=== PATIENT | female | born 1960 | race Caucasian/White ===

== ENCOUNTER 2021-09-22 11:28 | Observation (INO) ==
[2021-09-22 12:43] LABS: Basophils # (auto) 0.03 K/uL (0-0.2); Basophils % (auto) 0.6 %; Eosinophils # (auto) 0.09 K/uL (0-0.5); Eosinophils % (auto) 1.8 %; Hemoglobin 12.9 g/dL (12.0-16.0); Lymphocytes # (auto) 1.66 K/uL (1.2-3.4); Lymphocytes % (auto) 32.8 %; Mean Corpuscular Hemoglobin 29.7 pg (25-34); Mean Corpuscular Hgb Conc 33.1 g/dL (32-36); Mean Corpuscular Volume 89.9 fL (80-100); Mean Platelet Volume 10.5 fL (7.4-10.4); Monocytes # (auto) 0.33 K/uL (0.11-0.59); Monocytes % (auto) 6.5 %; Neutrophils # (auto) 2.95 K/uL (1.4-6.5); Neutrophils % (auto) 58.3 %; Platelet Count 249 K/uL (130-400); RDW Coefficient of Variation 13.5 % (11.5-14.5); RDW Standard Deviation 44.8 fL (36.4-46.3); Red Blood Count 4.34 M/uL (4.2-5.4); White Blood Count 5.06 K/uL (4.8-10.8)
--- NOTE | 2021-09-22 12:56 | XRay Report ---
SINGLE VIEW CHEST CLINICAL HISTORY: Generalized weakness FINDINGS: An AP, portable, upright chest radiograph is obtained. No prior studies are available for c omparison at the time of dictation. The patient is status post midline sternotomy. Epicardial pacing leads are noted. The heart is top normal for projection noting atherosclerotic calcification of the t horacic aorta. The pulmonary vasculature is noncongested. The lungs and pleural spaces are clear. No pneumothorax is seen. The skeletal structures are osteopenic. The bony thorax is grossly intact. IMPRESSION: No active disease in the chest. ACT 112: Negative or not required by law. Electronically signed by: Maurice Diaz M.D. 09/22/2021 12:55 PM
[2021-09-22 13:01] LABS: Albumin Level 3.7 gm/dl (3.4-5.0); BUN Creatinine Ratio 14.2 (10-20); Calcium 9.1 mg/dl (8.5-10.1); Creatinine Clr Calc Pharmacy 54.1 ml/min; Est GFR (African American) 77.8 ml/min; Est GFR (Non-African American) 67.1 ml/min; Potassium 3.6 mmol/L (3.5-5.1)
[2021-09-22 13:12] LABS: Albumin Globulin Ratio 1.1 (0.9-2); Bilirubin,Total 0.4 mg/dl (0.2-1); Globulin 3.3 gm/dl (2.5-4.0); Thyroid Stimulating Hormone 2.19 uIu/ml (0.300-4.500)
--- NOTE | 2021-09-22 13:15 | Emergency Department Note ---
Impression & Plan Acute left-sided weakness, Stroke-like symptoms, Abnormal brain CT ED Provider Note NAME: KEREN VILLAGOMEZ AGE: 61 SEX: F : 1960 ARRIVES VIA: Ambulance INFORMANT: [Patient] ED PROVIDER(S): [Maurice Hyman MD] CHIEF COMPLAINT: Weakness HISTORY OF PRESENT ILLNESS: The patient is a 61-year-old female who states that 4 hours ago she was at her doctor's office. She suddenly had a feeling of numbness to the left side of her face, her left arm and left leg. Her left arm felt quite weak and was not moving like it should. She sat down. Within about 10 minutes, the symptoms resolved and she now feels back to baseline. The patient does have a mechanical mitral valve. She also has history of A. fib. She recently had to hold all anticoagulation for around 2 days to have a breast biopsy. The patient states that she is now back on Coumadin. She had been bridging with Lovenox until her Coumadin was felt therapeutic. The patient has no history of stroke. There has been no cough, congestion or shortness of breath. No chest pain. No urinary complaints. REVIEW OF SYSTEMS: See HPI for pertinent positives and negatives. A total of ten systems were reviewed and were otherwise negative. PMHx/PSHx: See Below SOCIAL HISTORY: See Below. PHYSICAL EXAM: GENERAL: Patient is in no acute distress. HEENT: No acute trauma, normocephalic atraumatic, mucous membranes moist, no nasal congestion, no scleral icterus. NECK: No stridor, no adenopathy, no meningismus, trachea is midline. LUNGS: Clear to auscultation bilaterally, no wheeze, no rhonchi, breath sounds equal. HEART: Without murmurs gallops or rubs, regular rate and rhythm. No click heard. ABDOMEN: Soft, nontender, bowel sounds positive, no hernias, no peritonitis. EXTREMITIES: No cyanosis or edema, full range of motion of all the joints without pain or difficulty, no signs for acute trauma. NEUROLOGIC: Oriented x 3, no acute motor or sensory deficits, no focal weakness. No speech slur or facial droop. No cerebellar dysfunction or extremity drift. SKIN: No rash, no jaundice, no diaphoresis. DIFFERENTIAL DIAGNOSIS: Infection, dehydration, metabolic abnormality, hypo/hyperglycemia, electrolyte disturbance, anemia, hypoxia, cardiac sources, intracerebral event, toxicologic issues, stroke, TIA, as well as other pathologies. EMERGENCY DEPARTMENT COURSE/PROCEDURES: ECG: Indication was possible stroke. The ECG shows a sinus bradycardia with a rate of 50. There is no ST elevation, no PVCs. There is some nonspecific ST change laterally. QTC is 428. Continuous Cardiac Monitoring: An order was placed for continuous cardiac monitoring. The monitor shows a rate of 59 with sinus bradycardia. Critical Care Note: I have personally spent 39 minutes of critical care time in the direct management of this patient. This includes bedside care, interpretation of diagnostic studies, and testing, discussion with consultants, patient, and family members, and other required patient management activities. This 39 minutes is in excess of all separately billable procedures. MEDICAL DECISION MAKING: There is no leukocytosis or concerning anemia. There is a normal platelet count. INR is therapeutic at 2.5. No significant electrolyte abnormality or kidney failure. No concerning liver enzyme elevation. Patient appeared to be in a euthyroid state. Urinalysis does not show infection. Covid testing returned negative. Chest film does not show pneumonia or CHF. Brain CT shows a potential subacute infarct. CT angio of the brain and neck were performed and there was no stenosis or clot seen. On exam, the patient's symptoms had resolved. She had no focal neurologic findings, no speech slur. The patient presents with left-sided weakness that lasted for about 10 minutes. She is not a TPA candidate as she is currently asymptomatic and anticoagulated and out of the TPA window. The patient does require a hospital stay for further neurologic work-up. It is certainly possible that she had a stroke. A mass is also a possibility. [facility]. I did speak with the case management team, the on-call hospitalist was consulted. Past Med/Surg History Medical History Breast cancer, right HLD (hyperlipidemia) Hypothyroidism Paroxysmal atrial fibrillation Surgical History (Updated 09/22/21 @ 17:19 by Sia Quarles PA-C) History of hysterectomy History of lumpectomy of right breast History of mitral valve replacement with mechanical valve S/P breast biopsy, right Family History (Updated 09/22/21 @ 17:20 by Sia Quarles PA-C) Other Cancer Dyslipidemia Social History Smoking Status: Current every day smoker Tobacco Type: Cigarettes Cigarettes Per Day: 1 cigarette/day; Hx Alcohol Use: Yes Alcohol Intake Frequency: 2-4 x/Month Hx Substance Use: No Feels Safe at Home: Yes Allergies Allergies Allergy/AdvReac Type Severity Reaction Status Date / Time No Known Allergies Allergy Unverified 09/22/21 13:20 Home Meds Home Medications Medication Instructions Recorded Confirmed dofetilide 250 mcg capsule 250 mcg PO BID 09/22/21 09/22/21 levothyroxine 50 mcg tablet 25 mcg PO UD 09/22/21 09/22/21 levothyroxine 50 mcg tablet 50 mcg PO UD 09/22/21 09/22/21 pravastatin 20 mg tablet 20 mg PO HS 09/22/21 09/22/21 warfarin 4 mg tablet 4 mg PO HS 09/22/21 09/22/21 Results & Data (ED) Vital Signs Vital Signs - 24 hr 09/22/21 11:32 09/22/21 12:30 09/22/21 13:00 Temperature 36.6 C Temperature Source Oral Pulse Rate 57 L 57 L 59 L Pulse Rate [Apical] Pulse Rate from SpO2 Sensor 53 L 56 L Pulse Rhythm [Apical] Respiratory Rate 18 17 13 Respiratory Effort / Characteristics Non-Labored Spontaneous Respiratory Depth Normal Respiratory Pattern Regular Blood Pressure 172/78 H 144/69 H 139/76 Blood Pressure [Left Arm] Blood Pressure Mean 109 94 97 Blood Pressure Mean [Left Arm] Blood Pressure Position Lying Blood Pressure Position [Left Arm] Pulse Oximetry 99 98 99 Oxygen Delivery Method Room Air Oxygen Flow Rate Sepsis Recent Fever Within 48 Hours No Sepsis New/Unexplained Change in Mental Status N/A Sepsis Action Taken by Nursing No Action Required 09/22/21 13:30 09/22/21 14:00 09/22/21 16:07 Temperature 36.6 C Temperature Source Oral Pulse Rate 56 L 62 53 L Pulse Rate [Apical] 56 L Pulse Rate from SpO2 Sensor 56 L Pulse Rhythm [Apical] Regular Respiratory Rate 12 16 14 Respiratory Effort / Characteristics Non-Labored Spontaneous Respiratory Depth Normal Respiratory Pattern Regular Blood Pressure 157/71 H 151/71 H Blood Pressure [Left Arm] 129/71 Blood Pressure Mean 99 97 Blood Pressure Mean [Left Arm] 90 Blood Pressure Position Blood Pressure Position [Left Arm] Sitting Pulse Oximetry 98 98 97 Oxygen Delivery Method Room Air Room Air Oxygen Flow Rate 97 Sepsis Recent Fever Within 48 Hours Sepsis New/Unexplained Change in Mental Status Sepsis Action Taken by Nursing 09/22/21 18:16 09/22/21 18:34 Temperature Temperature Source Pulse Rate 57 L Pulse Rate [Apical] 57 L Pulse Rate from SpO2 Sensor Pulse Rhythm [Apical] Regular Respiratory Rate 16 16 Respiratory Effort / Characteristics Non-Labored Respiratory Depth Normal Respiratory Pattern Blood Pressure 129/67 Blood Pressure [Left Arm] 129/67 Blood Pressure Mean Blood Pressure Mean [Left Arm] 87 Blood Pressure Position Blood Pressure Position [Left Arm] Pulse Oximetry 98 98 Oxygen Delivery Method Room Air Room Air Oxygen Flow Rate Sepsis Recent Fever Within 48 Hours Sepsis New/Unexplained Change in Mental Status Sepsis Action Taken by Usp Medications Current Medication List: was personally reviewed by me Laboratory Data Attestation: I reviewed the patient's lab results. Result diagrams: 09/22/21 12:00 09/22/21 12:00 Lab Results 09/22/21 09/22/21 09/22/21 Range/Units 12:00 12:00 12:00 WBC 5.06 (4.8-10.8) K/uL RBC 4.34 (4.2-5.4) M/uL Hgb 12.9 (12.0-16.0) g/dL Hct 39.0 (37-47) % MCV 89.9 (80-100) fL MCH 29.7 (25-34) pg MCHC 33.1 (32-36) g/dL RDW Std Deviation 44.8 (36.4-46.3) fL RDW Coeff of Tanya 13.5 (11.5-14.5) % Plt Count 249 (130-400) K/uL MPV 10.5 H (7.4-10.4) fL Immature Gran % (Auto) 0.0 % Neut % (Auto) 58.3 % Lymph % (Auto) 32.8 % [place] % (Auto) 6.5 % Eos % (Auto) 1.8 % Baso % (Auto) 0.6 % Neut # (Auto) 2.95 (1.4-6.5) K/uL Lymph # (Auto) 1.66 (1.2-3.4) K/uL [place] # (Auto) 0.33 (0.11-0.59) K/uL Eos # (Auto) 0.09 (0-0.5) K/uL Baso # (Auto) 0.03 (0-0.2) K/uL Immature Gran # (Auto) 0.00 (0.00-0.02) K/uL PT 24.0 H (9.0-12.0) Seconds INR 2.5 H (0.9-1.1) APTT 38.5 H (21.0-31.0) Seconds PTT Ratio 1.5 Sodium 140 (136-145) mmol/L Potassium 3.6 (3.5-5.1) mmol/L Chloride 107 (98-107) mmol/L Carbon Dioxide 26 (21-32) mmol/L Anion Gap 6.0 (3-11) BUN 13 (7-18) mg/dl Creatinine 0.91 (0.6-1.2) mg/dl Est Cr Clr Drug Dosing 54.1 ml/min Est GFR ( Amer) 77.8 ml/min Est GFR (Non-Af Amer) 67.1 ml/min BUN/Creatinine Ratio 14.2 (10-20) Glucose 84 (70-99) mg/dl Calcium 9.1 (8.5-10.1) mg/dl Magnesium (1.8-2.4) mg/dl Total Bilirubin 0.4 (0.2-1) mg/dl AST 57 H (15-37) U/L ALT 63 (12-78) U/L Alkaline Phosphatase 90 (45-117) U/L Total Protein 7.0 (6.4-8.2) gm/dl Albumin 3.7 (3.4-5.0) gm/dl Globulin 3.3 (2.5-4.0) gm/dl Albumin/Globulin Ratio 1.1 (0.9-2) TSH 2.190 (0.300-4.500) uIu/ml Urine Color Urine Appearance (Clear) Urine pH (4.5-7.5) Ur Specific [place] (1.000-1.030) Urine Protein (Negative) Urine Glucose (UA) (Negative) Urine Ketones (Negative) Urine Blood (Negative) Urine Nitrite (Negative) Urine Bilirubin (Negative) Urine Urobilinogen (Negative) Ur Leukocyte Esterase (Negative) COVID-19 Eval Order SARS-CoV-2 (PCR) (Negative) 09/22/21 09/22/21 09/22/21 Range/Units 12:00 16:11 16:11 WBC (4.8-10.8) K/uL RBC (4.2-5.4) M/uL Hgb (12.0-16.0) g/dL Hct (37-47) % MCV (80-100) fL MCH (25-34) pg MCHC (32-36) g/dL RDW Std Deviation (36.4-46.3) fL RDW Coeff of Tanya (11.5-14.5) % Plt Count (130-400) K/uL MPV (7.4-10.4) fL Immature Gran % (Auto) % Neut % (Auto) % Lymph % (Auto) % [place] % (Auto) % Eos % (Auto) % Baso % (Auto) % Neut # (Auto) (1.4-6.5) K/uL Lymph # (Auto) (1.2-3.4) K/uL [place] # (Auto) (0.11-0.59) K/uL Eos # (Auto) (0-0.5) K/uL Baso # (Auto) (0-0.2) K/uL Immature Gran # (Auto) (0.00-0.02) K/uL PT (9.0-12.0) Seconds INR (0.9-1.1) APTT (21.0-31.0) Seconds PTT Ratio Sodium (136-145) mmol/L Potassium (3.5-5.1) mmol/L Chloride (98-107) mmol/L Carbon Dioxide (21-32) mmol/L Anion Gap (3-11) BUN (7-18) mg/dl Creatinine (0.6-1.2) mg/dl Est Cr Clr Drug Dosing ml/min Est GFR ( Amer) ml/min Est GFR (Non-Af Amer) ml/min BUN/Creatinine Ratio (10-20) Glucose (70-99) mg/dl Calcium (8.5-10.1) mg/dl Magnesium 2.3 (1.8-2.4) mg/dl Total Bilirubin (0.2-1) mg/dl AST (15-37) U/L ALT (12-78) U/L Alkaline Phosphatase (45-117) U/L Total Protein (6.4-8.2) gm/dl Albumin (3.4-5.0) gm/dl Globulin (2.5-4.0) gm/dl Albumin/Globulin Ratio (0.9-2) TSH (0.300-4.500) uIu/ml Urine Color Urine Appearance (Clear) Urine pH (4.5-7.5) Ur Specific [place] (1.000-1.030) Urine Protein (Negative) Urine Glucose (UA) (Negative) Urine Ketones (Negative) Urine Blood (Negative) Urine Nitrite (Negative) Urine Bilirubin (Negative) Urine Urobilinogen (Negative) Ur Leukocyte Esterase (Negative) COVID-19 Eval Order Covid19 at [facility] SARS-CoV-2 (PCR) NEGATIVE (Negative) 09/22/21 Range/Units 17:50 WBC (4.8-10.8) K/uL RBC (4.2-5.4) M/uL Hgb (12.0-16.0) g/dL Hct (37-47) % MCV (80-100) fL MCH (25-34) pg MCHC (32-36) g/dL RDW Std Deviation (36.4-46.3) fL RDW Coeff of Tanya (11.5-14.5) % Plt Count (130-400) K/uL MPV (7.4-10.4) fL Immature Gran % (Auto) % Neut % (Auto) % Lymph % (Auto) % [place] % (Auto) % Eos % (Auto) % Baso % (Auto) % Neut # (Auto) (1.4-6.5) K/uL Lymph # (Auto) (1.2-3.4) K/uL [place] # (Auto) (0.11-0.59) K/uL Eos # (Auto) (0-0.5) K/uL Baso # (Auto) (0-0.2) K/uL Immature Gran # (Auto) (0.00-0.02) K/uL PT (9.0-12.0) Seconds INR (0.9-1.1) APTT (21.0-31.0) Seconds PTT Ratio Sodium (136-145) mmol/L Potassium (3.5-5.1) mmol/L Chloride (98-107) mmol/L Carbon Dioxide (21-32) mmol/L Anion Gap (3-11) BUN (7-18) mg/dl Creatinine (0.6-1.2) mg/dl Est Cr Clr Drug Dosing ml/min Est GFR ( Amer) ml/min Est GFR (Non-Af Amer) ml/min BUN/Creatinine Ratio (10-20) Glucose (70-99) mg/dl Calcium (8.5-10.1) mg/dl Magnesium (1.8-2.4) mg/dl Total Bilirubin (0.2-1) mg/dl AST (15-37) U/L ALT (12-78) U/L Alkaline Phosphatase (45-117) U/L Total Protein (6.4-8.2) gm/dl Albumin (3.4-5.0) gm/dl Globulin (2.5-4.0) gm/dl Albumin/Globulin Ratio (0.9-2) TSH (0.300-4.500) uIu/ml Urine Color Yellow Urine Appearance Clear (Clear) Urine pH 7.5 (4.5-7.5) Ur Specific [place] > 1.045 H (1.000-1.030) Urine Protein Negative (Negative) Urine Glucose (UA) Negative (Negative) Urine Ketones Negative (Negative) Urine Blood Negative (Negative) Urine Nitrite Negative (Negative) Urine Bilirubin Negative (Negative) Urine Urobilinogen Negative (Negative) Ur Leukocyte Esterase Negative (Negative) COVID-19 Eval Order SARS-CoV-2 (PCR) (Negative) Administered Medications Discontinued Medications Ioversol (Optiray 320 125ml) 120 ml IV ONCE ONE Stop: 09/22/21 13:49 Last Admin: 09/22/21 13:49 Dose: 120 ml Documented by: [id number] Imaging Data Radiologist's Impression: Chest X-Ray 09/22/21 12:22 SINGLE VIEW CHEST CLINICAL HISTORY: Generalized weakness FINDINGS: An AP, portable, upright chest radiograph is obtained. No prior studies are available for comparison at the time of dictation. The patient is status post midline sternotomy. Epicardial pacing leads are noted. The heart is top normal for projection noting atherosclerotic calcification of the thoracic aorta. The pulmonary vasculature is noncongested. The lungs and pleural spaces are clear. No pneumothorax is seen. The skeletal structures are osteopenic. The bony thorax is grossly intact. IMPRESSION: No active disease in the chest. ACT 112: Negative or not required by law. Electronically signed by: Maurice Diaz M.D. 09/22/2021 12:[address] 09/22/21 13:04 CT head/brain wo con, CT angio neck with con, CT angio head w con CLINICAL HISTORY: 61 years-old Female with left side weak. Acute left-sided weakness TECHNIQUE: Multiple axial CT images of the head were obtained without contrast. CTA head and neck was obtained following the intravenous administration of 120 mL Optiray 320. 3-D coronal and sagittal MIPS were obtained from the axial data set and were submitted for review. All measurements were obtained according to NASCET criteria. A dose lowering technique was utilized adhering to the p rinciples of ALA. CT DOSE: 989.75 mGy.cm COMPARISON: None FINDINGS: CT HEAD: No acute intracranial hemorrhage, midline shift, intracranial mass, hydrocephalus, territorial ischemia or abnormal extra-axial collection. Ill- defined area of decreased attenuation involves the dentate nuclei of the left cerebellar hemisphere on image 8 series 2. There is mild associated mass effect upon the adjacent left quadrigeminal plate cistern. The calvarium is intact. The paranasal sinuses, mastoid air cells, and middle ear cavities are clear. CTA HEAD AND NECK: Prior median sternotomy. Atherosclerosis of the thoracic aortic arch and proximal great vessels without high-grade stenosis. Patency of the innominate and imaged subclavian arteries. The common carotid arteries are patent. Mild atherosclerosis with mild luminal irregularity of the carotid bulbs and proximal cervical segments of the internal carotid arteries. Additional atherosclerosis of the cavernous and supraclinoid segments. The middle cerebral arteries are patent. 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 No rupture. Mild tortuosity with luminal irregularity of the P2 segments of the vertebral arteries at the level of C1-C2 on image 260 series 6 for example. The basilar and posterior cerebral arteries appear patent. There is mild multifocal luminal narrowing of the left posterior cerebral artery. The cerebral venous sinuses are patent. There is no abnormal intracranial enhancement. Emphysema. No pneumothorax. Unremarkable soft tissues. Mild polypoid mucosal thickening of the left maxillary sinus. No acute fracture. IMPRESSION: 1. Ill-defined area of decreased attenuation involving the dentate nucleus of the mid left cerebellar hemisphere with suggested mild mass effect upon the adjacent quadrigeminal plate cistern. This is concerning for an acute versus subacute infarct with underlying intra-axial lesion considered less likely. This could be correlated with a follow-up MRI of the brain. 2. 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 Atherosclerotic vascular disease without high-grade stenosis, dissection or arterial occlusion identified. ACT 112: Negative or not required by law. The above report was generated using voice recognition software. It may contain grammatical, syntax or spelling errors. Electronically signed by: Hugh Peterson M.D. 09/22/2021 2:10 PM Head CTA 09/22/21 13:04 CT head/brain wo con, CT angio neck with con, CT angio head w con CLINICAL HISTORY: 61 years-old Female with left side weak. Acute left-sided weakness TECHNIQUE: Multiple axial CT images of the head were obtained without contrast. CTA head and neck was obtained following the intravenous administration of 120 mL Optiray 320. 3-D coronal and sagittal MIPS were obtained from the axial data set and were submitted for review. All measurements were obtained according to NASCET criteria. A dose lowering technique was utilized adhering to the principles of ALARA. CT DOSE: 989.75 mGy.cm COMPARISON: None FINDINGS: CT HEAD: No acute intracranial hemorrhage, midline shift, intracranial mass, hydrocephalus, territorial ischemia or abnormal extra-axial collection. Ill- defined area of decreased attenuation involves the dentate nuclei of the left cerebellar hemisphere on image 8 series 2. There is mild associated mass effect upon the adjacent left quadrigeminal plate cistern. The calvarium is intact. The paranasal sinuses, mastoid air cells, and middle ear cavities are clear. CTA HEAD AND NECK: Prior median sternotomy. Atherosclerosis of the thoracic aortic arch and proximal great vessels without high-grade stenosis. Patency of the innominate and imaged subclavian arteries. The common carotid arteries are patent. Mild atherosclerosis with mild luminal irregularity of the carotid bulbs and proximal cervical segments of the internal carotid arteries. Additional atherosclerosis of the cavernous and supraclinoid segments. The middle cerebral arteries are patent. 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 No rupture. Mild tortuosity with luminal irregularity of the P2 segments of the vertebral arteries at the level of C1-C2 on image 260 series 6 for example. The basilar and posterior cerebral arteries appear patent. There is mild multifocal luminal narrowing of the left posterior cerebral artery. The cerebral venous sinuses are patent. There is no abnormal intracranial enhancement. Emphysema. No pneumothorax. Unremarkable soft tissues. Mild polypoid mucosal thickening of the left maxillary sinus. No acute fracture. IMPRESSION: 1. Ill-defined area of decreased attenuation involving the dentate nucleus of the mid left cerebellar hemisphere with suggested mild mass effect upon the adjacent quadrigeminal plate cistern. This is concerning for an acute versus subacute infarct with underlying intra-axial lesion considered less likely. This could be correlated with a follow-up MRI of the brain. 2. 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 Atherosclerotic vascular disease without high-grade stenosis, dissection or arterial occlusion identified. ACT 112: Negative or not required by law. The above report was generated using voice recognition software. It may contain grammatical, syntax or spelling errors. Electronically signed by: Hugh Peterson M.D. 09/22/2021 2:10 PM Neck CTA 09/22/21 13:04 CT head/brain wo con, CT angio neck with con, CT angio head w con CLINICAL HISTORY: 61 years-old Female with left side weak. Acute left-sided we akness TECHNIQUE: Multiple axial CT images of the head were obtained without contrast. CTA head and neck was obtained following the intravenous administration of 120 mL Optiray 320. 3-D coronal and sagittal MIPS were obtained from the axial data set and were submitted for review. All measurements were obtained according to NASCET criteria. A dose lowering technique was utilized adhering to the principles of ALARA. CT DOSE: 989.75 mGy.cm COMPARISON: None FINDINGS: CT HEAD: No acute intracranial hemorrhage, midline shift, intracranial mass, hydroceph alus, territorial ischemia or abnormal extra-axial collection. Ill-defined area of decreased attenuation involves the dentate nuclei of the left cerebellar hemisphere on image 8 series 2. There is mild associated mass effect upon the adjacent left quadrigeminal plate cistern. The calvarium is intact. The paranasal sinuses, mastoid air cells, and middle ear cavities are clear. CTA HEAD AND NECK: Prior median sternotomy. Atherosclerosis of the thoracic aortic arch and proximal great vessels without high-grade stenosis. Patency of the innominate and imaged subclavian arteries. The common carotid arteries are patent. Mild atherosclerosis with mild luminal irregularity of the carotid bulbs and proximal cervical segments of the internal carotid arteries. Additional atherosclerosis of the cavernous and supraclinoid segments. The middle cerebral arteries are patent. 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 No rupture. Mild tortuosity with luminal irregularity of the P2 segments of the vertebral arteries at the level of C1-C2 on image 260 series 6 for example. The basilar and posterior cerebral arteries appear patent. There is mild multifocal luminal narrowing of the left posterior cerebral artery. The cerebral venous sinuses are patent. There is no abnormal intracranial enhancement. Emphysema. No pneumothorax. Unremarkable soft tissues. Mild polypoid mucosal thickening of the left maxillary sinus. No acute fracture. IMPRESSION: 1. Ill-defined area of decreased attenuation involving the dentate nucleus of the mid left cerebellar hemisphere with suggested mild mass effect upon the adjacent quadrigeminal plate cistern. This is concerning for an acute versus subacute infarct with underlying intra-axial lesion considered less likely. This could be correlated with a follow-up MRI of the brain. 2. 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 Atherosclerotic vascular disease without high-grade stenosis, dissection or arterial occlusion identified. ACT 112: Negative or not required by law. The above report was generated using voice recognition software. It may contain grammatical, syntax or spelling errors. Electronically signed by: Hugh Peterson M.D. 09/22/2021 2:10 PM Discharge Plan Visit Data Chief Complaint: Weakness Stated Complaint: WEAKNESS ED Provider: Maurice Hyman Discharge Problem: Acute left-sided weakness, Stroke-like symptoms, Abnormal brain CT Patient Disposition: Admitted As Inpatient Condition: Fair Discharge Instructions Interventions: ED Discharge Assessment Last Done: 09/22/21 18:34 Forms Stand Alone Forms: My [employer] Prescriptions Prescriptions: No Action dofetilide 250 mcg capsule 250 mcg PO BID RF: 0 warfarin 4 mg tablet 4 mg PO HS RF: 0 levothyroxine 50 mcg tablet 50 mcg PO UD RF: 0 pravastatin 20 mg tablet 20 mg PO HS RF: 0 levothyroxine 50 mcg tablet 25 mcg PO UD RF: 0 Referrals Referrals: Jose Garibay MD [Primary Care Provider] -
[2021-09-22 13:21] LABS: INR 2.5 (0.9-1.1); Partial Thromboplastin Ratio 1.5; Partial Thromboplastin Time 38.5 Seconds (21.0-31.0)
[2021-09-22] MEDS ORDERED: OPTIRAY 320 125ml IV ONE (13:48)
--- NOTE | 2021-09-22 14:11 | CT Scan Report ---
CT head/brain wo con, CT angio neck with con, CT angio head w con CLINICAL HISTORY: 61 years-old Female with left side weak. Acute left-sided weakness TECHNIQUE: Multiple axial CT images of the head were obtained without contrast. CTA head and neck was obtained following the intravenous administration of 120 mL Optiray 320. 3-D coronal and sagittal MS PS were obtained from the axial data set and were submitted for review. All measurements were obtaine d according to NASCET criteria. A dose lowering technique was utilized adhering to the principles of ALARA. CT DOSE: 989.75 mGy.cm COMPARISON: None FINDINGS: CT HEAD: No acute intracranial hemorrhage, midline shift, intracranial mass, hydrocephalus, territorial ischem ia or abnormal extra-axial collection. Ill-defined area of decreased attenuation involves the dentate nuclei of the left cerebellar hemisphere on image 8 series 2. There is mild associated mass effect u taye the adjacent left quadrigeminal plate cistern. The calvarium is intact. The paranasal sinuses, mastoid air cells, and middle ear cavities are clear . CTA HEAD AND NECK: Prior median sternotomy. Atherosclerosis of the thoracic aortic arch and proximal great vessels witho ut high-grade stenosis. Patency of the innominate and imaged subclavian arteries. The common carotid arteries are patent. Mild atherosclerosis with mild luminal irregularity of the carotid bulbs and pro ximal cervical segments of the internal carotid arteries. Additional atherosclerosis of the cavernous and supraclinoid segments. The middle cerebral arteries are patent. 3 mm saccular aneurysm of the an terior communicating artery. No rupture. Mild tortuosity with luminal irregularity of the P2 segments of the vertebral arteries at the level of C1-C2 on image 260 series 6 for example. The basilar and p osterior cerebral arteries appear patent. There is mild multifocal luminal narrowing of the left post erior cerebral artery. The cerebral venous sinuses are patent. There is no abnormal intracranial enha ncement. Emphysema. No pneumothorax. Unremarkable soft tissues. Mild polypoid mucosal thickening of the left m axillary sinus. No acute fracture. IMPRESSION: 1. Ill-defined area of decreased attenuation involving the dentate nucleus of the mid left cerebellar hemisphere with suggested mild mass effect upon the adjacent quadrigeminal plate cistern. This is co ncerning for an acute versus subacute infarct with underlying intra-axial lesion considered less like ly. This could be correlated with a follow-up MRI of the brain. 2. 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 Atherosclerotic vascular disease without high-grade stenosis, dissection or arterial occlusion marcy ntified. ACT 112: Negative or not required by law. The above report was generated using voice recognition software. It may contain grammatical, syntax o r spelling errors. Electronically signed by: Hugh Peterson M.D. 09/22/2021 2:10 PM
--- NOTE | 2021-09-22 15:40 | History & Physical Report ---
Date of Service September 22, 2021 Assessment & Plan (1) Stroke-like symptoms: Plan: Patient is 61 y/o F with PMH mechanical mitral valve in 1993, on warfarin, paroxysmal atrial fibrillation, right breast CA s/p lumpectomy, hypothyroidism presented to ER with complaint of left face, arm and leg paresthesias and left arm weakness lasting 10 minutes today. Was off Coumadin 2 days last week then had Lovenox bridge. Today in ER vitals stable. Patient with resolution of symptoms. CTA head and neck: 1. Ill-defined area of decreased attenuation involving the dentate nucleus of the mid left cerebellar hemisphere with suggested mild mass effect upon the adjacent quadrigeminal plate cistern. This is concerning for an acute versus subacute infarct with underlying intra-axial lesion considered less likely. This could be correlated with a follow-up MRI of the brain. 2. 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 Atherosclerotic vascular disease without high-grade stenosis, dissection or arterial occlusion identified. Tele to monitor for arrhythmias MRI brain Echo with bubble study PT/OT consult Continue statin Will hold on Plavix, aspirin as pt is currently on [facility] Neurology consult (2) History of mitral valve replacement with mechanical valve: Plan: S/p mechanical valve in 1993 On Coumadin, goal 2.5-3.5 INR: 2.5 INR in a.m. (3) Paroxysmal atrial fibrillation: Plan: Current sinus rhythm Continue Tikosyn, Coumadin INR in a.m. (4) HLD (hyperlipidemia): Plan: Continue pravastatin (5) Hypothyroidism: Plan: Continue levothyroxine (6) Breast cancer, right: Plan: S/p lumpectomy Continue outpatient follow-up DVT Prophylaxis On Coumadin, INR: 2.5 Full Code as per discussion with pt Follows with Dr Garibay for routine care Pt was seen and care coordinated with Dr Hughes. See addendum History of Present Illness Chief Complaint: Weakness Primary Care Provider: Jose Garibay MD Patient is 61 y/o F with PMH mechanical mitral valve in 1993, on warfarin, paroxysmal atrial fibrillation, right breast CA s/p lumpectomy, hypothyroidism presented to ER with complaint of left-sided paresthesias. Patient states this morning around 9 AM she had sudden onset of numbness and tingling to left face, left arm and left leg. She also noted left arm weakness. She felt a little dizzy when trying to stand. Patient states symptoms lasted approximately 10 minutes and then resolved. Denies headache, vision changes, speech changes. Patient was off Coumadin last week 09/13/2021 and 09/14/2021 and started Lovenox bridge on 09/15/2021 in preparation for breast biopsy on 09/18/2021. She resumed Coumadin on 09/18/2021 and stopped Lovenox 09/21/2021. Denies fever/chills, diaphoresis, N/V/D/C, syncope, falls, neck pain, CP, SOB, orthopnea, palpitations, cough, sore throat, choking, otalgia, rhinorrhea, abdominal pain, extremity edema, rashes, urinary symptoms. Today in ER patient with resolution of symptoms. CTA head: Ill-defined area of decreased attenuation involving the Hakeem nuclear's of the mid left cerebellar hemisphere with suggested mild mass-effect upon the adjacent quadrigeminal plate cistern. This is concerning for acute versus subacute infarct with underlying intra-axial lesion considered less likely. Patient being admitted for further evaluation and work-up Allergies Allergy/AdvReac Type Severity Reaction Status Date / Time No Known Allergies Allergy Unverified 09/22/21 13:20 Home Medications Medication Instructions Recorded Confirmed Type dofetilide 250 mcg capsule 250 mcg PO BID 09/22/21 09/22/21 History levothyroxine 50 mcg tablet 25 mcg PO UD 09/22/21 09/22/21 History levothyroxine 50 mcg tablet 50 mcg PO UD 09/22/21 09/22/21 History pravastatin 20 mg tablet 20 mg PO HS 09/22/21 09/22/21 History warfarin 4 mg tablet 4 mg PO HS 09/22/21 09/22/21 History Past Med/Surg History Medical History Breast cancer, right HLD (hyperlipidemia) Hypothyroidism Paroxysmal atrial fibrillation Surgical History (Updated 09/22/21 @ 17:19 by Sia Quarles PA-C) History of hysterectomy History of lumpectomy of right breast History of mitral valve replacement with mechanical valve S/P breast biopsy, right Family History (Updated 09/22/21 @ 17:20 by Sia Quarles PA-C) Other Cancer Dyslipidemia Social History Smoking Status: Never smoker Tobacco Type: Cigarettes Cigarettes Per Day: 1 cigarette/day; Hx Alcohol Use: No Hx Substance Use: No Preferred Language: Bhutanese Communication Ability: Effective Dry House Tender Required: No Beliefs That Will Affect Care: None Current Living Situation: Family Other Information That Helps Us Care for You: No Feels Safe at Home: No Is there a partner from a previous relationship who is making you feel unsafe now?: No Any Concerns about Your Family Situation: No Would You Like to Speak to Someone About Your Situation: No Safety Concerns: Feels Safe At This Time Review of Systems Review of Systems: All systems reviewed & are unremarkable except as noted in HPI & below Physical Exam Physical Exam: General: no distress, WDWN Head: normocephalic, atraumatic Eyes: PERRL, EOM's intact, conjunctiva non-injected, anicteric ENT: normal inspection external ears, nose, mucous membranes moist Neck: supple, trachea midline, non-tender Lungs: clear, no respiratory distress, no wheezing/rhonchi/rales CV: RRR, no murmur, no JVD, no pretibial edema Abd: normal BS, soft, non-tender Ext: no cyanosis, no calf tenderness Neuro: A&O x 3, normal affect,Visual graham intact. PERRL,EOMs intact. No nystagmus,Facial sensation is intact and symmetric,The face is strong and symmetric, Hearing grossly intact, Soft palate elevates symmetrically, no dysarthria, Shoulder shrug intact, Tongue is midline, normal movement, no fasciculations. Strength 5/5 throughout Skin: warm, dry Results & Data Results & Data ([facility]) Vital Signs (Past 12 Hours) Vital Signs Temp Pulse Resp BP Pulse Ox 09/22/21 14:00 62 16 151/71 H 98 09/22/21 13:30 56 L 12 157/71 H 98 09/22/21 13:00 59 L 13 139/76 99 09/22/21 12:30 57 L 17 144/69 H 98 09/22/21 11:32 36.6 C 57 L 18 172/78 H 99 Laboratory Results Short CBC 09/22/21 Range/Units 12:00 WBC 5.06 (4.8-10.8) K/uL Hgb 12.9 (12.0-16.0) g/dL Hct 39.0 (37-47) % Plt Count 249 (130-400) K/uL BMP 09/22/21 12:00 Sodium 140 Potassium 3.6 Chloride 107 Carbon Dioxide 26 BUN 13 Creatinine 0.91 Glucose 84 Calcium 9.1 Liver Function 09/22/21 Range/Units 12:00 Total Bilirubin 0.4 (0.2-1) mg/dl AST 57 H (15-37) U/L ALT 63 (12-78) U/L Alkaline Phosphatase 90 (45-117) U/L Albumin 3.7 (3.4-5.0) gm/dl Diagnostic Findings Chest X-Ray 09/22/21 12:22 SINGLE VIEW CHEST CLINICAL HISTORY: Generalized weakness FINDINGS: An AP, portable, upright chest radiograph is obtained. No prior studies are available for comparison at the time of dictation. The patient is status post midline sternotomy. Epicardial pacing leads are noted. The heart is top normal for projection noting atherosclerotic calcification of the thoracic aorta. The pulmonary vasculature is noncongested. The lungs and pleural spaces are clear. No pneumothorax is seen. The skeletal structures are osteopenic. The bony thorax is grossly intact. IMPRESSION: No active disease in the chest. ACT 112: Negative or not required by law. Electronically signed by: Maurice Diaz M.D. 09/22/2021 12:[address] 09/22/21 13:04 CT head/brain wo con, CT angio neck with con, CT angio head w con CLINICAL HISTORY: 61 years-old Female with left side weak. Acute left-sided weakness TECHNIQUE: Multiple axial CT images of the head were obtained without contrast. CTA head and neck was obtained following the intravenous administration of 120 mL Optiray 320. 3-D coronal and sagittal MIPS were obtained from the axial data set and were submitted for review. All measurements were obtained according to NASCET criteria. A dose lowering technique was utilized adhering to the principles of ALARA. CT DOSE: 989.75 mGy.cm COMPARISON: None FINDINGS: CT HEAD: No acute intracranial hemorrhage, midline shift, intracranial mass, hydrocephalus, territorial ischemia or abnormal extra-axial collection. Ill- defined area of decreased attenuation involves the dentate nuclei of the left ce rebellar hemisphere on image 8 series 2. There is mild associated mass effect upon the adjacent left quadrigeminal plate cistern. The calvarium is intact. The paranasal sinuses, mastoid air cells, and middle ear cavities are clear. CTA HEAD AND NECK: Prior median sternotomy. Atherosclerosis of the thoracic aortic arch and proximal great vessels without high-grade stenosis. Patency of the innominate and imaged subclavian arteries. The common carotid arteries are patent. Mild atherosclerosis with mild luminal irregularity of the carotid bulbs and proximal cervical segments of the internal carotid arteries. Additional atherosclerosis of the cavernous and supraclinoid segments. The middle cerebral arteries are patent. 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 No rupture. Mild tortuosity with luminal irregularity of the P2 segments of the vertebral arteries at the level of C1-C2 on image 260 series 6 for example. The basilar and posterior cerebral arteries appear patent. There is mild multifocal luminal narrowing of the left posterior cerebral artery. The cerebral venous sinuses are patent. There is no abnormal intracranial enhancement. Emphysema. No pneumothorax. Unremarkable soft tissues. Mild polypoid mucosal thickening of the left maxillary sinus. No acute fracture. IMPRESSION: 1. Ill-defined area of decreased attenuation involving the dentate nucleus of the mid left cerebellar hemisphere with suggested mild mass effect upon the adjacent quadrigeminal plate cistern. This is concerning for an acute versus subacute infarct with underlying intra-axial lesion considered less likely. This could be correlated with a follow-up MRI of the brain. 2. 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 Atherosclerotic vascular disease without high-grade stenosis, dissection or arterial occlusion identified. ACT 112: Negative or not required by law. The above report was generated using voice recognition software. It may contain grammatical, syntax or spelling errors. Electronically signed by: Hugh Peterson M.D. 09/22/2021 2:10 PM Head CTA 09/22/21 13:04 CT head/brain wo con, CT angio neck with con, CT angio head w con CLINICAL HISTORY: 61 years-old Female with left side weak. Acute left-sided weakness TECHNIQUE: Multiple axial CT images of the head were obtained without contrast. CTA head and neck was obtained following the intravenous administration of 120 mL Optiray 320. 3-D coronal and sagittal MIPS were obtained from the axial data set and were submitted for review. All measurements were obtained according to NASCET criteria. A dose lowering technique was utilized adhering to the principles of ALARA. CT DOSE: 989.75 mGy.cm COMPARISON: None FINDINGS: CT HEAD: No acute intracranial hemorrhage, midline shift, intracranial mass, hydrocephalus, territorial ischemia or abnormal extra-axial collection. Ill- defined area of decreased attenuation involves the dentate nuclei of the left cerebellar hemisphere on image 8 series 2. There is mild associated mass effect upon the adjacent left quadrigeminal plate cistern. The calvarium is intact. The paranasal sinuses, mastoid air cells, and middle ear cavities are clear. CTA HEAD AND NECK: Prior median sternotomy. Atherosclerosis of the thoracic aortic arch and proximal great vessels without high-grade stenosis. Patency of the innominate and imaged subclavian arteries. The common carotid arteries are patent. Mild atherosclerosis with mild luminal irregularity of the carotid bulbs and proximal cervical segments of the internal carotid arteries. Additional atherosclerosis of the cavernous and supraclinoid segments. The middle cerebral arteries are patent. 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 No rupture. Mild tortuosity with luminal irregularity of the P2 segments of the vertebral arteries at the level of C1-C2 on image 260 series 6 for example. The basilar and posterior cerebral arteries appear patent. There is mild multifocal luminal narrowing of the left posterior cerebral artery. The cerebral venous sinuses are patent. There is no abnormal intracranial enhancement. Emphysema. No pneumothorax. Unremarkable soft tissues. Mild polypoid mucosal thickening of the left maxillary sinus. No acute fracture. IMPRESSION: 1. Ill-defined area of decreased attenuation involving the dentate nucleus of the mid left cerebellar hemisphere with suggested mild mass effect upon the adjacent quadrigeminal plate cistern. This is concerning for an acute versus subacute infarct with underlying intra-axial lesion considered less likely. This could be correlated with a follow-up MRI of the brain. 2. 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 Atherosclerotic vascular disease without high-grade stenosis, dissection or arterial occlusion identified. ACT 112: Negative or not required by law. The above report was generated using voice recognition software. It may contain grammatical, syntax or spelling errors. Electronically signed by: Hugh Peterson M.D. 09/22/2021 2:10 PM Neck CTA 09/22/21 13:04 CT head/brain wo con, CT angio neck with con, CT angio head w con CLINICAL HISTORY: 61 years-old Female with left side weak. Acute left-sided weakness TECHNIQUE: Multiple axial CT images of the head were obtained without contrast. CTA head and neck was obtained following the intravenous administration of 120 mL Optiray 320. 3-D coronal and sagittal MIPS were obtained from the axial data set and were submitted for review. All measurements were obtained according to NASCET criteria. A dose lowering technique was utilized adhering to the principles of ALARA. CT DOSE: 989.75 mGy.cm COMPARISON: None FINDINGS: CT HEAD: No acute intracranial hemorrhage, midline shift, intracranial mass, hydrocephalus, territorial ischemia or abnormal extra-axial collection. Ill- defined area of decreased attenuation involves the dentate nuclei of the left cerebellar hemisphere on image 8 series 2. There is mild associated mass effect upon the adjacent left quadrigeminal plate cistern. The calvarium is intact. The paranasal sinuses, mastoid air cells, and middle ear cavities are clear. CTA HEAD AND NECK: Prior median sternotomy. Atherosclerosis of the thoracic aortic arch and pro ximal great vessels without high-grade stenosis. Patency of the innominate and imaged subclavian arteries. The common carotid arteries are patent. Mild atherosclerosis with mild luminal irregularity of the carotid bulbs and proximal cervical segments of the internal carotid arteries. Additional atherosclerosis of the cavernous and supraclinoid segments. The middle cerebral arteries are patent. 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 No rupture. Mild tortuosity with luminal irregularity of the P2 segments of the vertebral arteries at the level of C1-C2 on image 260 series 6 for example. The basilar and posterior cerebral arteries appear patent. There is mild multifocal luminal narrowing of the left posterior cerebral artery. The cerebral venous sinuses are patent. There is no abnormal intracranial enhancement. Emphysema. No pneumothorax. Unremarkable soft tissues. Mild polypoid mucosal thickening of the left maxillary sinus. No acute fracture. IMPRESSION: 1. Ill-defined area of decreased attenuation involving the dentate nucleus of the mid left cerebellar hemisphere with suggested mild mass effect upon the adjacent quadrigeminal plate cistern. This is concerning for an acute versus subacute infarct with underlying intra-axial lesion considered less likely. This could be correlated with a follow-up MRI of the brain. 2. 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 Atherosclerotic vascular disease without high-grade stenosis, dissection or arterial occlusion identified. ACT 112: Negative or not required by law. The above report was generated using voice recognition software. It may contain grammatical, syntax or spelling errors. Electronically signed by: Hugh Peterson M.D. 09/22/2021 2:10 PM Supervising Physician Co-Signing Physician Notes Attending addendum The patient was seen and examined in emergency room She has multiple medical problems as mentioned in H&P and has been on Coumadin She underwent recent breast surgery and her anticoagulation was managed appropriately Complained to have sudden onset of numbness and tingling involving the left side of the face body and limbs lasted for 10 minutes without any other neurological symptoms Symptoms completely resolved in the emergency room CTA showed possible lesion/infarct involving the dentate nucleus of the mid left cerebellum On examination No apparent distress at rest Hemodynamically stable Chestclear Heart S1-S2, regular CNSalert, awake and oriented x3 No focal sensory and motor deficit appreciated Her admission labs, EKG and imaging studies reviewed Strokelike symptoms with possible lesion in the dentate nucleus of the mid left cerebellum Symptoms completely resolved and the INR is therapeutic Neurology consulted Agree with assessment and plan as outlined above by LATANYA Rivers Dr
[2021-09-22 18:00] LABS: Appearance Urine Clear (Clear); Bilirubin Urine Negative (Negative); Blood Urine Negative (Negative); Color Urine Yellow; Glucose Urine UA Negative (Negative); Ketones Urine Negative (Negative); Leukocyte Esterase Urine Negative (Negative); Nitrite Urine Negative (Negative); Protein Urine Negative (Negative); Specific Gravity Urine > 1.045 (1.000-1.030); Urobilinogen Urine Negative (Negative); pH Urine 7.5 (4.5-7.5)
--- NOTE | 2021-09-22 18:14 | Electrocardiogram Report ---
Test Reason : Blood Pressure : / mmHG Vent. Rate : 050 BPM Atrial Rate : 050 BPM P-R Int : 180 ms QRS Dur : 082 ms QT Int : 470 ms P-R-T Axes : 090 005 033 degrees QTc Int : 428 ms Poor data quality, interpretation may be adversely affected Sinus bradycardia with sinus arrhythmia Nonspecific ST and T wave abnormality Abnormal ECG When compared with ECG of 21-OCT-2018 07:52, No significant change was found Confirmed by Hunter Pendleton ([id number]) on 09/22/2021 6:14:36 PM Referred By: Confirmed By:Juan Luis Pendleton
[2021-09-22] MEDS ORDERED: ONDANSETRON INJ 2 MG/ML 2 ML VIAL IV PRN (19:18)
[2021-09-22] MEDS ORDERED: PHARMACIST DISCHARGE MED REC CONSULT PRN (19:18)
[2021-09-22] MEDS ORDERED: POLYETHYLENE (MIRALAX) 17 GM PACK PO PRN (19:18)
[2021-09-22] MEDS ORDERED: ACETAMINOPHEN 325 MG TAB PO PRN (19:18)
[2021-09-22] MEDS ORDERED: WARFARIN SOD 4 MG TAB PO SCH (21:00)
[2021-09-22] MEDS ORDERED: PRAVASTATIN SOD 20 MG TAB PO SCH (21:00)
--- NOTE | 2021-09-22 21:26 | Magnetic Resonance Report ---
MR brain wo con CLINICAL HISTORY: stroke symptoms left arm, leg, and facial paresthesia TECHNIQUE: Multiplanar and multisequence MR images of the brain were obtained without intravenous con trast. Comparison: None available at the time of this dictation. FINDINGS: No abnormal restricted diffusion is identified. The white matter is unremarkable. The ventricular sys tem is normal in appearance. Hemorrhage No extra axial fluid collections are seen. There are no anat s, mass effect, or midline shift. The corpus callosum, pituitary gland, and cerebellar tonsils appea r grossly unremarkable. Flow voids of the major intracranial arterial vessels are identified. Bilateral maxillary mucous poly ps are seen. IMPRESSION: No acute abnormalities and in particular no evidence of acute infarct is seen. ACT 112: Negative or not required by law. Electronically signed by: Lg Schumacher M.D. 09/22/2021 9:25 PM
[2021-09-22] MEDS: DOFETILIDE 125 MCG CAPSULE PO SCH (21:48)
[2021-09-23] MEDS ORDERED: LEVOTHYROXINE SODIUM 50 MCG TABLET PO SCH (06:30)
[2021-09-23] MEDS: DOFETILIDE 125 MCG CAPSULE PO SCH (08:08)
[2021-09-23 08:30] LABS: Basophils # (auto) 0.02 K/uL (0-0.2); Basophils % (auto) 0.4 %; Eosinophils # (auto) 0.11 K/uL (0-0.5); Eosinophils % (auto) 2.3 %; Hemoglobin 13.9 g/dL (12.0-16.0); Lymphocytes # (auto) 1.44 K/uL (1.2-3.4); Lymphocytes % (auto) 30.6 %; Mean Corpuscular Hemoglobin 30.2 pg (25-34); Mean Corpuscular Hgb Conc 33.1 g/dL (32-36); Mean Corpuscular Volume 91.3 fL (80-100); Mean Platelet Volume 10.9 fL (7.4-10.4); Monocytes # (auto) 0.35 K/uL (0.11-0.59); Monocytes % (auto) 7.4 %; Neutrophils # (auto) 2.78 K/uL (1.4-6.5); Neutrophils % (auto) 59.3 %; Platelet Count 266 K/uL (130-400); RDW Coefficient of Variation 13.6 % (11.5-14.5)
[2021-09-23 08:39] LABS: INR 2.4 (0.9-1.1); Prothrombin Time 22.6 Seconds (9.0-12.0)
[2021-09-23 08:42] LABS: Estimated Average Glucose 111 mg/dl; Hemoglobin A1C 5.5 % (4.5-5.6)
[2021-09-23 08:47] LABS: BUN Creatinine Ratio 16.6 (10-20); Calcium 9.6 mg/dl (8.5-10.1); Creatinine Clr Calc Pharmacy 46.4 ml/min; Est GFR (African American) 64.7 ml/min; Est GFR (Non-African American) 55.8 ml/min; Potassium 4.4 mmol/L (3.5-5.1)
--- NOTE | 2021-09-23 11:11 | Communication Note ---
Date of Service: September 23, 2021 Soha is 61 years old is right-handed is a patient of Dr. Garibay of [facility] internal medicine. She has had a longstanding congenital abnormality of the mitral valve with mitral valve replacement being done quite a number of years ago and has chronic atrial fibrillation on Coumadin anticoagulation She had to have a breast biopsy which proved to be positive for lobular carcinoma in the past week and not to have her Coumadin held and was bridged with Lovenox and the process was complete but despite being back on her baseline Coumadin she had an event yesterday at characterized by 10 minutes of left sided numbness tingling and weakness to the point that she had to lift her left arm. 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 and she does have a family history with aneurysm in her father so this is going to need to be followed up by neurosurgery and her 2 children who live elsewhere are going to have to have screening but this is something it can be arranged outpatient Initial CT of her head talked about a possible area of infarction in the left cerebellum but an MRI is now shown nothing of the sort and is no evidence for recent infarctions or even significant remote infarctions Other problems in addition of breast cancer which is going to be addressed by surgical consultation within the next week include hypothyroidism and dyslipideia Her medication list at home includes Dofetilide Levothyroxine pravastatin and Coumadin She has no drug allergies Family history is positive for the aneurysm in her father and is otherwise unremarkable Review of systems reveals no significant systemic complaints, the recent surgery, the need to stop her Coumadin will be bridged with Lovenox which was successful, and is otherwise unremarkable revealing no evidence for fever sweats chills weight loss weight gain new issues referable to HEENT, cardiovascular pulmonary gastrointestinal genitourinary musculoskeletal dermatologic or hematologic systems Exam reveals a blood pressure of 91/57 pulse of 62 respirations 18 she is afebrile has normal O2 saturation 96% on room air She is awake alert oriented 3 spheres with normal eye movements visual graham facial tone and strength facial sensation Gait station coordination is absolutely normal without drift pronation sign tremor tics choreiform activity and gait is normal with heel walking toe walking and tandem gait all being well done Reflexes 1+ symmetrical toes downgoing no Melisa signs are seen Strength testing is grossly intact Sensations intact all primary modalities Imaging studies are described above and reveal a small 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 She is known to cardiology and I suggesting that they may want to review the case and decide whether they would use this approach or consider converting to a novel anticoagulant for raising the Coumadin dose slightly to move the INR a little higher She also has an incidental aneurysm and a family history for same in her father and this will need to be followed up by our neurosurgeons and a referral will need to be arranged. She also has 2 children whose risk for aneurysms are now high due to the positive family history of an aneurysm in her father and and now her so screening with CT angiography is going to have to be arranged probably through their primary care physicians and their respective home locations I reviewed all of this with the patient and I discussed this with her attending physician At this point I believe she could be discharged depending on what cardiology feels about her anticoagulation in this setting Neurology will sign off at this point but we will make appropriate arrangements for neurosurgical consultation and will arrange to have her follow-up in our office in about a month at a time when her possible breast cancer surgery will h ave been done and neurosurgical evaluation likely will have been performed probably through telemedicine Serafin Peters MD
[2021-09-23] MEDS ORDERED: ASPIRIN 81 MG ECTAB PO SCH (11:45)
--- NOTE | 2021-09-23 13:30 | Hospitalist Progress Note ---
Date of Service September 23, 2021 Assessment & Plan (1) Stroke-like symptoms: Plan: Patient is 61 y/o F with PMH mechanical mitral valve in 1993, on warfarin, paroxysmal atrial fibrillation, right breast CA s/p lumpectomy, hypothyroidism presented to ER with complaint of left face, arm and leg paresthesias and left arm weakness lasting 10 minutes today. Was off Coumadin 2 days last week then had Lovenox bridge. TIA with no evidence of a stroke Tele to monitor for arrhythmias-bradycardia but no significant arrhythmia MRI brain-no evidence of a stroke PT/OT consult-patient has been ambulating in the hallway without any difficulties Continue statin Appreciate neurology input and recommendation Will start baby aspirin and will continue with Coumadin She was advised to talk to her primary care physician to arrange for screening scans for her children to rule out any aneurysm CTA head and neck: 1. Ill-defined area of decreased attenuation involving the dentate nucleus of the mid left cerebellar hemisphere with suggested mild mass effect upon the adjacent quadrigeminal plate cistern. This is concerning for an acute versus subacute infarct with underlying intra-axial lesion considered less likely. This could be correlated with a follow-up MRI of the brain. 2. 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 Atherosclerotic vascular disease without high-grade stenosis, dissection or arterial occlusion identified. 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 As above Will need outpatient neurosurgery appointment (2) History of mitral valve replacement with mechanical valve: Plan: S/p mechanical valve in 1993 On Coumadin, goal 2.5-3.5 INR: 2.5 Appreciate cardiology input and recommendation Advised to have INR a little more than 3 given her complex cardiac condition Aspirin added She will need to be on heparin bridging before breast surgery (3) Paroxysmal atrial fibrillation: Plan: Current sinus rhythm Continue Tikosyn, Coumadin INR in a.m.-2.401 09/23/2021 Advised to keep INR little more than 3 (4) HLD (hyperlipidemia): Plan: Continue pravastatin (5) Hypothyroidism: Plan: Continue levothyroxine (6) Breast cancer, right: Plan: S/p lumpectomy Continue outpatient follow-up If any further surgery is needed she will need to be intravenous heparin bridging during the procedure DVT Prophylaxis On Coumadin, INR: 2.5 Full Code as per discussion with pt She will be discharged home this afternoon Admission and Anticipated Discharge Date Admission Date: September 22, 2021 Subjective 09/23/2021 The patient was seen and examined in medical telemetry unit She has been feeling much better and denies any neurological symptoms She has been moving around and eating normally and no problem with speech and were problem with ambulation She wants to go home Review of Systems Review of Systems: All systems reviewed and are unremarkable except as noted below Neurologic: no gait abnormality, no unsteadiness, no paralysis, no numbness, no paresthesia, no lack of coordination, no tremor(s) and no abnormal movements Physical Exam Physical Exam: Lying in bed comfortably Constitutional: average body habitus; not ill appearing Eyes: PERRL, conjunctivae normal, anicteric sclerae ENMT: external ear and nose normal, oropharynx normal Neck: trachea midline, no thyromegaly Respiratory: no respiratory distress and no cough Auscultation: lungs clear to auscultation bilaterally Cardiovascular: Rate/Rhythm: regular rate, regular rhythm and + bradycardic Heart Sounds: normal S1, normal S2 and + murmur (2/6 ESM over precordium) Extremities: no edema Gastrointestinal (Abdomen): Inspection/Auscultation: normal bowel sounds; abdomen not distended Percussion/Palpation: abdomen soft; abdomen nontender Musculoskeletal: No acute arthritis in any joint Neurologic: Alert, awake and oriented x3. No focal sensory and motor deficit appreciated Lymphatic: no cervical or axillary lymphadenopathy Results & Data Results & Data ([facility]) Vital Signs (Past 12 Hours) Vital Signs Temp Pulse Pulse Resp BP Pulse Ox 09/23/21 08:20 36.9 C 62 18 91/57 L 96 09/23/21 08:06 36.6 C 62 18 106/68 96 09/23/21 07:06 45 L 09/23/21 02:07 37.1 C 56 L 18 108/67 96 Laboratory Results Short CBC 09/23/21 Range/Units 08:12 WBC 4.70 L (4.8-10.8) K/uL Hgb 13.9 (12.0-16.0) g/dL Hct 42.0 (37-47) % Plt Count 266 (130-400) K/uL BMP 09/23/21 08:12 Sodium 140 Potassium 4.4 D Chloride 108 H Carbon Dioxide 25 BUN 18 Creatinine 1.06 Glucose 146 H Calcium 9.6 Urine 09/22/21 Range/Units 17:50 Urine Color Yellow Urine Appearance Clear (Clear) Urine pH 7.5 (4.5-7.5) Ur Specific [place] > 1.045 H (1.000-1.030) Urine Protein Negative (Negative) Urine Glucose (UA) Negative (Negative) Medications Administered Current Inpatient Medications Acetaminophen (Acetaminophen 325 Mg Tab) 650 mg PO Q4H PRN PRN Reason: Pain or Fever Stop: 10/22/21 19:17 Aspirin (Aspirin 81 Mg Ectab) [facility] [place] [facility] Stop: 10/23/21 11:44 Last Admin: 09/23/21 12:01 Dose: 81 mg Documented by: Dofetilide (Dofetilide 125 Mcg Capsule) 250 mcg PO BID [facility] Stop: 10/22/21 20:59 Last Admin: 09/23/21 08:08 Dose: 250 mcg Documented by: Levothyroxine Sodium (Levothyroxine Sodium 50 Mcg Tablet) 50 mcg PO [email or web address] [facility] Stop: 10/23/21 06:29 Last Admin: 09/23/21 06:36 Dose: 50 mcg Documented by: Levothyroxine Sodium (Levothyroxine Sodium 25 Mcg Tablet) 25 mcg PO [email or web address] [facility] Stop: 10/25/21 06:29 Miscellaneous Information (Pharmacist Discharge Med Rec Consult) 1 ea N/A UD PRN PRN Reason: Consult Stop: 10/22/21 19:17 Ondansetron HCl (Ondansetron Inj 2 Mg/Ml 2 Ml Vial) 4 mg IV Q6H PRN PRN Reason: Nausea Stop: 10/22/21 19:17 Polyethylene Glycol (Polyethylene (Miralax) 17 Gm Pack) 17 gm PO DAILY PRN PRN Reason: Constipation Stop: 10/22/21 19:17 Pravastatin Sodium (Pravastatin Sod 20 Mg Tab) 20 mg PO HS [facility] Stop: 10/22/21 20:59 Last Admin: 09/22/21 21:49 Dose: 20 mg Documented by: Warfarin Sodium (Warfarin Sod 4 Mg Tab) 4 mg PO HS [place] Stop: 10/22/21 20:59 Last Admin: 09/22/21 21:49 Dose: 4 mg Documented by:
[2021-09-23] MEDS ORDERED: STROKE PATIENT DISCHARGE STA (15:42)
--- NOTE | 2021-09-23 15:55 | Pharmacy Report ---
Pharmacist Stroke Counseling - Date of Service September 23, 2021 - Scope: Pharmacy has been consulted to provide medication discharge counseling for this patient admitted with transient ischemic attack as per the Pharmacist Discharge Counseling for Stroke Patients Protocol. - Medications on Discharge: Home Medications Medication Instructions Recorded Confirmed dofetilide 250 mcg capsule 250 mcg PO BID 09/22/21 09/22/21 levothyroxine 50 mcg tablet 25 mcg PO UD 09/22/21 09/22/21 levothyroxine 50 mcg tablet 50 mcg PO UD 09/22/21 09/22/21 pravastatin 20 mg tablet 20 mg PO HS 09/22/21 09/22/21 warfarin 4 mg tablet 4 mg PO HS 09/22/21 09/22/21 New Rx's Medication Instructions Recorded aspirin 81 mg tablet,delayed 81 mg PO QAM 30 Days #30 tab 09/23/21 release - Action: The above medications, specifically ones for stroke treatment/prophylaxis, have been reviewed in detail with the patient and/or patient accounts receivable representative(s) prior to discharge. This includes indication, common adverse reactions, drug interactions, and medication administration. Medication counseling has been employed using the teach-back method to ensure understanding. - Outcome: The patient and/or patient accounts receivable representative(s) have demonstrated understanding of the medications. Additional comments: * Spoke with patient prior to discharge. She sounds knowledgeable and aware regarding her medications. She follows with [facility] for warfarin dosing. She understands that Cardiology would like her INR slightly over 3.0. * She understands that aspirin is being added to her regimen and that she will be on dual "blood thinners", which increases her bleeding/bruising risk. She is aware to monitor and be careful of falls. Informed her she can purchase aspirin OTC as most insurance companies do not cover. Thank you for allowing pharmacy to be involved in the care of this patient. Please call [phone] with any additional questions
--- NOTE | 2021-09-23 17:25 | Cardiology Consultation ---
Date of Consultation September 23, 2021 Assessment & Plan (1) Acute left-sided weakness: (2) History of mitral valve replacement with mechanical valve: (3) Paroxysmal atrial fibrillation: (4) Breast cancer, right: 61-year-old female with history of paroxysmal atrial fibrillation, and remote mechanical mitral valve replacement, performed 1993. Transient left-sided weakness: -Symptoms consistent with TIA event. -Patient had recently been off of Coumadin for 5 days to allow ultrasound-guided core biopsy of the right breast on 09/18/2021 -She was appropriately bridged pre-/post procedure with low molecular weight heparin. -INR at presentation yesterday was 2.4. -Her typical INR goal is 2.5-3.5 historically. -I would recommend that we recalibrate her goal to have a goal INR of 3, with acceptable range of 2.5-3.5. -She is not on aspirin chronically with history of duodenal ulcer dating back to when she lived in [place] in 2010. -At present I agree with neurology recommendation to add aspirin back. Preoperative cardiac evaluation, breast carcinoma: -This does however raise significant concerns of how to best manage her newly diagnosed lobular breast carcinoma. -She is to see breast surgery next week in [place] to discuss next step. -We probably need to delay surgery for at least an interval of 3 weeks. -We will need to discuss case with surgery with regards to whether or not it can be performed without stopping aspirin. -Future considerations include proceeding with repeat bridge therapy, however with thoughts that this was not effective despite being handled appropriately with no significant time off of anticoagulation, we may need to arrange for admission for unfractionated heparin pre and post procedure to ensure therapeutic anticoagulation, with plans to maybe reinitiate unfractioned heparin 4 to 6 hours postoperatively. Paroxysmal atrial fibrillation: -Continue prior to hospital treatment with dofetilide without change. Asymptomatic sinus bradycardia: Patient was noted to have sinus bradycardia in the 40s at 6:07 AM while sleeping. I believe this is acceptable. She did not present to the hospital due to symptoms of bradycardia. Dyslipidemia: Continue pravastatin. Most recent LDL cholesterol as an outpatient was 110 mg/dL, consider starting ezetimibe. As noted, transaminases have become elevated on higher dose of statin therapy in the past. Case discussed with Dr. Hughes History of Present Illness Attending Physician: Davida Hughes MD History of Present Illness Soha Del Rosario is a delightful 61 year old female seen in cardiology consultation per the request of Dr Hughes for the evaluation of intermittent sinus bradycardia, and TIA. Patient states that she presented via the emergency room after a 10-minute episode of left arm and leg tingling and weakness that had since resolved on its own. 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 At the time my assessment the patient was back to her typical neurologic ba sary. Cardiology was consulted with regards to her TIA in the setting of mechanical mitral valve, as well as an episode of bradycardia observed this morning. Her primary spin tank tender is Dr Tabor. PMH: 1. Severe mitral regurgitation since childhood ultimately prompting mitral valve replacement with a bileaflet mechanical tilting disc prosthesis, 1993, [place] 2. Symptomatic paroxysmal atrial fibrillation/atrial flutter status post multiple cardioversions, not treated with chronic Tikosyn (dofetilide therapy). 3. Past surgical left atrial appendage clip 4. Hypothyroidism 5. Dyslipidemia 6. History of transaminitis on high-dose statin therapy Allergies Allergy/AdvReac Type Severity Reaction Status Date / Time No Known Allergies Allergy Unverified 09/22/21 13:20 Home Medications Medication Instructions Recorded Confirmed Type dofetilide 250 mcg capsule 250 mcg PO BID 09/22/21 09/22/21 History levothyroxine 50 mcg tablet 25 mcg PO UD 09/22/21 09/22/21 History levothyroxine 50 mcg tablet 50 mcg PO UD 09/22/21 09/22/21 History pravastatin 20 mg tablet 20 mg PO HS 09/22/21 09/22/21 History warfarin 4 mg tablet 4 mg PO HS 09/22/21 09/22/21 History aspirin 81 mg tablet,delayed 81 mg PO QAM 30 Days #30 tab 09/23/21 Rx release Patient History Medical History Breast cancer, right HLD (hyperlipidemia) Hypothyroidism Paroxysmal atrial fibrillation Surgical History History of hysterectomy History of lumpectomy of right breast History of mitral valve replacement with mechanical valve S/P breast biopsy, right Family History Other Cancer Dyslipidemia Social History Smoking Status: Never smoker Tobacco Type: Cigarettes Cigarettes Per Day: 1 cigarette/day; Hx Alcohol Use: No Hx Substance Use: No Preferred Language: Algerian Communication Ability: Effective Industrial Organization Manager Required: No Beliefs That Will Affect Care: None Current Living Situation: Family Other Information That Helps Us Care for You: No Feels Safe at Home: No Is there a partner from a previous relationship who is making you feel unsafe now?: No Any Concerns about Your Family Situation: No Would You Like to Speak to Someone About Your Situation: No Safety Concerns: Feels Safe At This Time Assistive Devices: None Review of Systems Review of Systems: All systems reviewed & are unremarkable except as noted in HPI & below Physical Exam Physical Exam: Temp Pulse Resp BP Pulse Ox 36.9 C 62 18 91/57 L 96 09/23/21 15:46 09/23/21 15:46 09/23/21 15:46 09/23/21 15:46 09/23/21 15:46 Constitutional: WD/WN, vitals as above Respiratory: normal respiratory effort, lungs clear to auscultation Cardiovascular: RRR, no murmur, no edema Gastrointestinal (Abdomen): normal bowel sounds, soft, nontender, no hepatosplenomegaly Neurologic: PERRL, EOMI, accommodation nl, no face palsy, no dysarthria Results & Data ([facility]) Vital Signs (Past 12 Hours) Vital Signs Temp Pulse Pulse Resp BP Pulse Ox 09/23/21 15:46 36.9 C 62 18 91/57 L 96 09/23/21 15:36 36.9 C 62 18 91/57 L 96 09/23/21 15:23 64 09/23/21 08:20 36.9 C 62 18 91/57 L 96 09/23/21 08:06 36.6 C 62 18 106/68 96 09/23/21 07:06 45 L Diagnostic Findings EKG 09/22/2021, sinus bradycardia 50 bpm, corrected QT normal 420 ms Echocardiogram, mild concentric left ventricular hypertrophy, left ventricular ejection fraction normal 55 to 60%, there is a mechanical bileaflet tilting disc mitral valve prosthesis. The leaflets were well visualized with normal excursion, the gradients across the prosthesis were normal.
--- NOTE | 2021-09-23 17:39 | Discharge Summary ---
Date of Service September 23, 2021 Admission HPI Per Admitting Provider Patient is 61 y/o F with PMH mechanical mitral valve in 1993, on warfarin, paroxysmal atrial fibrillation, right breast CA s/p lumpectomy, hypothyroidism presented to ER with complaint of left-sided paresthesias. Patient states this morning around 9 AM she had sudden onset of numbness and tingling to left face, left arm and left leg. She also noted left arm weakness. She felt a little dizzy when trying to stand. Patient states symptoms lasted approximately 10 minutes and then resolved. Denies headache, vision changes, speech changes. Patient was off Coumadin last week 09/13/2021 and 09/14/2021 and started Lovenox bridge on 09/15/2021 in preparation for breast biopsy on 09/18/2021. She resumed Coumadin on 09/18/2021 and stopped Lovenox 09/21/2021. Denies fever/chills, diaphoresis, N/V/D/C, syncope, falls, neck pain, CP, SOB, orthopnea, palpitations, cough, sore throat, choking, otalgia, rhinorrhea, abdominal pain, extremity edema, rashes, urinary symptoms. Today in ER patient with resolution of symptoms. CTA head: Ill-defined area of decreased attenuation involving the Hakeem nuclear's of the mid left cerebellar hemisphere with suggested mild mass-effect upon the adjacent quadrigeminal plate cistern. This is concerning for acute versus subacute infarct with underlying intra-axial lesion considered less likely. Patient being admitted for further evaluation and work-up Admission Exam Per Admitting Provider Physical Exam: General: no distress, WDWN Head: normocephalic, atraumatic Eyes: PERRL, EOM's intact, conjunctiva non-injected, anicteric ENT: normal inspection external ears, nose, mucous membranes moist Neck: supple, trachea midline, non-tender Lungs: clear, no respiratory distress, no wheezing/rhonchi/rales CV: RRR, no murmur, no JVD, no pretibial edema Abd: normal BS, soft, non-tender Ext: no cyanosis, no calf tenderness Neuro: A&O x 3, normal affect,Visual graham intact. PERRL,EOMs intact. No nystagmus,Facial sensation is intact and symmetric,The face is strong and symmetric, Hearing grossly intact, Soft palate elevates symmetrically, no dysarthria, Shoulder shrug intact, Tongue is midline, normal movement, no fasciculations. Strength 5/5 throughout Skin: warm, dry Principal Diagnosis TIA, 3 mm saccular aneurysm of NAYELI, mechanical mitral valve on Coumadin, atrial fibrillation on Tikosyn Discharge Exam Lying in bed comfortably Constitutional average body habitus; not ill appearing Eyes PERRL, conjunctivae normal, anicteric sclerae ENMT external ear and nose normal, oropharynx normal Neck trachea midline, no thyromegaly Respiratory no respiratory distress and no cough Auscultation: lungs clear to auscultation bilaterally Cardiovascular Rate/Rhythm: regular rate, regular rhythm and + bradycardic Heart Sounds: normal S1, normal S2 and + murmur (2/6 ESM over precordium) Extremities: no edema Gastrointestinal (Abdomen) Inspection/Auscultation: normal bowel sounds; abdomen not distended Percussion/Palpation: abdomen soft; abdomen nontender Lymphatic no cervical or axillary lymphadenopathy Discharge Data Allergies Allergy/AdvReac Type Severity Reaction Status Date / Time No Known Allergies Allergy Unverified 09/22/21 13:20 Consultations 09/22/21 14:41 ED Decision to Admit Stat 09/22/21 19:18 Consult Neurology Routine 09/23/21 11:11 Consult Cardiology Routine Ordered Studies 09/22/21 13:04 CT angio head w con Stat CT angio neck with con Stat CT head/brain wo con Stat 09/22/21 19:18 MR brain wo con Routine Hospital Course (1) Stroke-like symptoms: Patient is 61 y/o F with H mechanical mitral valve in 1993, on warfarin, paroxysmal atrial fibrillation, right breast CA s/p lumpectomy, hypothyroidism presented to ER with complaint of left face, arm and leg paresthesias and left arm weakness lasting 10 minutes today. Was off Coumadin 2 days last week then had Lovenox bridge. TIA with no evidence of a stroke Tele to monitor for arrhythmias-bradycardia but no significant arrhythmia MRI brain-no evidence of a stroke PT/OT consult-patient has been ambulating in the hallway without any difficulties Continue statin Appreciate neurology input and recommendation Will start baby aspirin and will continue with Coumadin She was advised to talk to her primary care physician to arrange for screening scans for her children to rule out any aneurysm CTA head and neck: 1. Ill-defined area of decreased attenuation involving the dentate nucleus of the mid left cerebellar hemisphere with suggested mild mass effect upon the adjacent quadrigeminal plate cistern. This is concerning for an acute versus subacute infarct with underlying intra-axial lesion considered less likely. This could be correlated with a follow-up MRI of the brain. 2. 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 Atherosclerotic vascular disease without high-grade stenosis, dissection or arterial occlusion identified. 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 As above Will need outpatient neurosurgery appointment (2) History of mitral valve replacement with mechanical valve: S/p mechanical valve in 1993 On Coumadin, goal 2.5-3.5 INR: 2.5 Appreciate cardiology input and recommendation Advised to have INR a little more than 3 given her complex cardiac condition Aspirin added She will need to be on heparin bridging before breast surgery (3) Paroxysmal atrial fibrillation: Current sinus rhythm Continue Tikosyn, Coumadin INR in a.m.-2.401 09/23/2021 Advised to keep INR little more than 3 (4) HLD (hyperlipidemia): Continue pravastatin (5) Hypothyroidism: Continue levothyroxine (6) Breast cancer, right: S/p lumpectomy Continue outpatient follow-up If any further surgery is needed she will need to be intravenous heparin bridging during the procedure DVT Prophylaxis On Coumadin, INR: 2.5 Full Code as per discussion with pt She will be discharged home this afternoon Total Time Total Time Spent Total Time Spent (In Minutes): 35 minutes Discharge Plan Discharge Items Patient Disposition: Home - Self-Care Reason For Visit: STROKE SYMPTOMS Discharge Diagnosis: TIA, 3 mm saccular aneurysm of NAYELI, mechanical mitral valve on Coumadin, atrial fibrillation on Tikosyn Condition on Discharge: Fair Activity: Resume your previous activity Non-emergency contact: Primary Care Provider Call non-emergency contact if: you have any medication questions and your symptoms worsen Follow-up/Referrals: Jose Garibay MD [Primary Care Provider] - (Your doctor's office will call on Saturday with an appointment within 7 days) Diet: Heart Healthy Addtl Attending Provider Instructions: Please take precautions to avoid falls No change in your current medications except a baby aspirin was added to continue Your doctor's office will call you with an appointment with neurosurgeon in [place] for a follow-up on your aneurysm Your children will need to have his screened to rule out any aneurysm and your primary care physician needs to arrange those for them You will need to have heparin bridge for any planned surgery on your breast You should make an appointment with your Coumadin clinic and keep your INR a little over 3 as advised by the linoleum printer Pending Studies at Discharge: No Stand-Alone Forms: Medications to Prevent Stroke, [employer] [facility] [employer], Smoking Cessation Medications and DC Order Prescriptions: New aspirin 81 mg Tablet,Delayed Release (Dr/Ec) 81 mg PO QAM 30 Days Qty: 30 RF: 0 Continued dofetilide 250 mcg capsule 250 mcg PO BID RF: 0 warfarin 4 mg tablet 4 mg PO HS RF: 0 levothyroxine 50 mcg tablet 50 mcg PO UD RF: 0 pravastatin 20 mg tablet 20 mg PO HS RF: 0 levothyroxine 50 mcg tablet 25 mcg PO UD RF: 0 Discharge Orders: Discharge Order (Routine); Ordered 09/23/21 Ordered By: Davida Horan/Other Patient Handouts: Understanding Orthostatic Hypotension, ED Weakness (Uncertain Cause) Admission Data Admit Date/Time: 09/22/21 15:39 Attending Provider: Davida Hughes Admit Provider: Davida Hughes Primary Care Provider: Jose Garibay Other Providers: Rafa Acosta ; Serafin Peters ; Simba Tapia Other Interventions: Discharge Summary Assessment (RN) Last Done: 09/23/21 15:46
[2021-09-25] MEDS ORDERED: LEVOTHYROXINE SODIUM 25 MCG TABLET PO SCH (06:30)
== END 2021-09-23 16:09 | disposition home or self-care (01) ==
LOC: ED 11:28 → 2W 15:39 → INTOOBSV 15:39 → 2W 18:34

== ENCOUNTER 2022-08-28 13:15 | Inpatient (IN) ==
[2022-08-28 14:37] LABS: Basophils # (auto) 0.03 K/uL (0-0.2); Basophils % (auto) 0.3 %; Hematocrit (blood only) 24.5 % (34.1-44.9); Immature Granulocytes # (auto) 0.03 K/uL (0.00-0.02); Immature Granulocytes % (auto) 0.3 %; Lymphocytes # (auto) 1.51 K/uL (1.2-3.4); Lymphocytes % (auto) 15.7 %; Mean Corpuscular Hemoglobin 30.1 pg (25.0-34.0); Mean Corpuscular Hgb Conc 32.7 g/dL (32.0-36.0); Mean Corpuscular Volume 92.1 fL (80.0-100.0); Mean Platelet Volume 11.4 fL (9.4-12.3); Monocytes % (auto) 3.1 %; Neutrophils # (auto) 7.76 K/uL (1.4-6.5); Neutrophils % (auto) 80.6 %; Platelet Count 222 K/uL (130-400); RDW Coefficient of Variation 13.9 % (11.5-14.5); RDW Standard Deviation 46.5 fL (36.4-46.3); Red Blood Count 2.66 M/uL (3.93-5.22); White Blood Count 9.63 K/ul (4.8-10.8)
[2022-08-28 14:47] LABS: Albumin Globulin Ratio 2.5 (0.9-2); Albumin Level 3.8 gm/dl (3.4-5.0); BUN Creatinine Ratio 42.7 (10-20); Bilirubin,Total 0.3 mg/dl (0.2-1.0); Calcium 8.4 mg/dl (8.5-10.1); Creatinine Clr Calc Pharmacy 59.5 ml/min; Est GFR (African American) 87.6 ml/min; Est GFR (Non-African American) 75.6 ml/min; Globulin 1.5 gm/dl (2.5-4.0); Potassium 4.4 mmol/L (3.5-5.1); Total Protein 5.3 gm/dl (6.0-8.3)
[2022-08-28 14:49] LABS: Partial Thromboplastin Ratio 1.4; Partial Thromboplastin Time 39.6 Seconds (21.0-31.0); Prothrombin Time 48.4 Seconds (9.0-12.0)
--- NOTE | 2022-08-28 16:20 | Electrocardiogram Report ---
Test Reason : Blood Pressure : / mmHG Vent. Rate : 077 BPM Atrial Rate : 077 BPM P-R Int : 138 ms QRS Dur : 078 ms QT Int : 400 ms P-R-T Axes : 068 006 148 degrees QTc Int : 452 ms Poor data quality, interpretation may be adversely affected Normal sinus rhythm Nonspecific ST and T wave abnormality Abnormal ECG When compared with ECG of 22-SEP-2021 11:37, Vent. rate has increased BY 27 BPM T wave inversion now evident in Anterior leads Confirmed by Hunter Pendleton ([id number]) on 08/28/2022 4:20:43 PM Referred By: Confirmed By:Juan Luis Pendleton
[2022-08-28] MEDS ORDERED: SODIUM CHLORIDE 0.9% 250 ML IV PRN ×2 (17:54→21:26)
[2022-08-28] MEDS ORDERED: FAMOTIDINE 20MG IV PUSH 20 MG/5 ML SYR IV STA (17:55)
[2022-08-28] MEDS ORDERED: SODIUM CHLORIDE 0.9% 1000ML 1,000 ML IV STA (17:55)
[2022-08-28] MEDS ORDERED: PHYTONADIONE 2.5 MG in DEXTROSE 5% 50 ML IV ONE (17:55)
[2022-08-28] MEDS ORDERED: PANTOPRAZOLE BOLUS/DRIP 1 EACH IV STA (17:55)
[2022-08-28] MEDS ORDERED: PANTOprazole 80 MG in DEXTROSE 5% 100 ML IV ONE (17:55)
--- NOTE | 2022-08-28 18:55 | History & Physical Report ---
Date of Service August 28, 2022 Assessment & Plan (1) Acute blood loss anemia: (2) GIB (gastrointestinal bleeding): (3) Symptomatic anemia: Plan: - Suspected UGI bleeding with h/o dudoenal ulcer and black tarry stool today x1. No further bleeding since. H/o PUD with duodenal ulcer requiring cauterization 8 years back. No NSAIDs intake. - Baseline Hb 12-13, currently 8. - INR 5 on coumadin and s/p 2.5 mg iv vit K for reversal but cautious given her mechanical MV and h/o TIA when her coumadin was held and bridged with lovenox. - Trend H&H q6hr, if Hb trends further down or symptomatic, transfuse PRBC to keep Hb around 8. She has 4 U PRBC typed and crossed and on hold in case she needs transfusion - Continue PPI drip, IVF, npo after midnight, GI consult for UGI endoscopy. Iron transfusion. - Hold coumadin and aspirin (4) Supratherapeutic INR: Plan: INR 5 on coumadin and s/p 2.5 mg iv vit K for reversal but cautious given her mechanical MV and h/o TIA when her coumadin was held and bridged with lovenox. Goal INR is 2.5-3.5, ideally around 3 per cardiology (5) Mechanical heart valve present: Plan: On coumadin, hold coumadin for now. Resume when okay per GI. If INR drops below goal, will need bridging. (6) H/O: duodenal ulcer: (7) Paroxysmal atrial fibrillation: Plan: continue dofetilide. Coumadin plan as above (8) Breast cancer, right: Plan: s/p treatment. Now on tamoxifen as ER positive. (9) Brain aneurysm: Plan: Scheduled for surgery on 09/18 (10) Hypothyroid: Plan: continue synthroid Plan DVT ppx- INR supratherapeutic. Coumadin on hold Dispo- PCU on tele Full code History of Present Illness Chief Complaint: black tarry stool Primary Care Provider: Jose Garibay MD 62 year old female with h/o mechanical MV on coumadin, PAF, h/o right breast cancer, hypothyroidism, brain aneurysm scheduled for surgery 09/18 who presented to the ED today with black tarry stool and weakness. She was restless all night and she had a black tarry stool this morning. She did not have a BM for past 3 days. She felt weak and tired. She had her INR drawn today which was 5.8. She came to the ED for evaluation. Denies any CP, SOB, lightheadedness, dizziness. Her last dose of coumadin was yesterday morning. She has h/o duodenal ulcer 8 years back in [place] which was cauterized. She denies intake of any NSAIDs. Denies any GERD. Denies any new meds. Does not smoke or drink alcohol. States she is under lot of stress due to upcoming aneurysm surgery. States she had TIA while her coumadin was held and was bridged with lovenox for breast biopsy a year ago. In the ED, her Hb was 8, INR 5, vitals stable. Given Vit K 2.5 mg in the ED. T tisha and lindsey done fo 4 U PRBC and on hold in case she needs transfusion. Started on ivf and PPI drip/pepcid. Hospitalist service was consulted for admission. Allergies Allergy/AdvReac Type Severity Reaction Status Date / Time No Known Allergies Allergy Verified 08/28/22 18:50 Home Medications Medication Instructions Recorded Confirmed Type pravastatin 20 mg tablet 20 mg PO DAILY 09/22/21 08/28/22 History warfarin 4 mg tablet 4 mg PO DIRECTED 09/22/21 08/28/22 History amoxicillin 500 mg capsule 2,000 mg PO DIRECTED PRN PRIOR 11/21/21 08/28/22 History TO DENTAL APPT. 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 Closure of left atrial appendage at time of surgery. Hx of colonoscopy S/P breast biopsy, right S/P PETER (total abdominal hysterectomy) Status post partial mastectomy of right breast With right axillary SLN biopsy on 10/18/21 Dr. Cabrera Family History Mother Dementia Alzheimer disease Father , 83yo Accident Cerebral aneurysm Atrial fibrillation Brother Obesity Sister No problems noted. Family/Other Breast cancer Maternal aunt Son No problems noted. Daughter No problems noted. Other Cancer Dyslipidemia Social History Smoking Status: Never smoker Tobacco Type: Cigarettes Cigarettes Per Day: 1 PPD x 40yrs; Hx Alcohol Use: No Hx Substance Use: No Preferred Language: Samoan Communication Ability: Effective Visual Impairment: No Limitations Hearing Ability: Normal Skiver Heel Tap Required: No Beliefs That Will Affect Care: None marital status: Current Living Situation: Family Current Living Situation Comment: Grandson lives with her current occupational status: employed Feels Safe at Home: Yes caffeine: Yes (1 cup/day) during the past year weight has: remained stable Assistive Devices: None Review of Systems Review of Systems: All systems reviewed & are unremarkable except as noted in Subjective Physical Exam Physical Exam: General: Lying comfortably in bed, not in distress, on room air HEENT: EOMI, TINO, MMM Chest: Clear breath sounds bilaterally, no wheezes or crackles CVS: Regular rate and rhythm, normal heart sounds, no murmur Abdomen: Soft, non tender, not distended, normal bowel sounds Neuro: Awake, alert, oriented, conversing well, non focal Extremities: No cyanosis, clubbing or edema MSK: negative Skin: Warm, dry, no rash Psych: calm, cooperative Results & Data Results & Data ([facility]) Vital Signs (Past 12 Hours) Vital Signs Temp Pulse Resp BP Pulse Ox O2 Del Method 08/28/22 18:30 77 14 08/28/22 18:30 77 14 138/71 100 08/28/22 18:00 73 15 113/58 L 100 08/28/22 17:44 94 H 19 136/72 08/28/22 13:39 36.4 C L 82 16 127/78 99 Room Air Laboratory Results Short CBC 08/28/22 Range/Units 14:12 WBC 9.63 (4.8-10.8) K/ul Hgb 8.0 L (12.0-16.0) g/dl Hct 24.5 L (34.1-44.9) % Plt Count 222 (130-400) K/uL BMP 08/28/22 14:12 Sodium 138 Potassium 4.4 Chloride 108 H Carbon Dioxide 25 BUN 35 H Creatinine 0.82 Glucose 109 H Calcium 8.4 L Liver Function 08/28/22 Range/Units 14:12 Total Bilirubin 0.3 (0.2-1.0) mg/dl AST 23 (13-39) U/L ALT 13 (7-52) U/L Alkaline Phosphatase 42 (34-104) U/L Albumin 3.8 (3.4-5.0) gm/dl
[2022-08-28] MEDS: PANTOprazole 40 MG in DEXTROSE 5% 100 ML IV SCH ×2 (19:04→23:56)
[2022-08-28 20:47] LABS: Hematocrit (blood only) 20.9 % (34.1-44.9); Hemoglobin 6.8 g/dl (12.0-16.0)
[2022-08-28] MEDS ORDERED: FLUARIX QUADRIVALENT 0.5 ML SYR IM ONE (21:40)
[2022-08-28 21:44] LABS: Hematocrit (blood only) 22.1 % (34.1-44.9); Hemoglobin 7.2 g/dl (12.0-16.0)
[2022-08-28] MEDS ORDERED: ACETAMINOPHEN 325 MG TAB PO ONE (22:00)
[2022-08-28] MEDS: IRON SUCROSE 300 MG in SODIUM CHLORIDE 0.9% 250 ML IV SCH (22:11)
[2022-08-28] MEDS: DOFETILIDE 125 MCG CAPSULE PO SCH (22:49)
--- NOTE | 2022-08-28 23:31 | Emergency Department Note ---
Impression & Plan Acute upper gastrointestinal bleeding, Acute blood loss anemia, Supratherapeutic INR ED Provider Note INFORMANT: Patient ED PROVIDER(S): Serafin Leong MD CHIEF COMPLAINT: Black tarry stools PLAN: Disposition: Admitted Condition: Good Outpatient prescription management: none Referral: None MEDICAL DECISION MAKING: Patient presented to the Emergency Department because of black tarry stool. This was concerning as she is anticoagulated. The patient had blood work initiated. She was found to be moderately anemic. This was worse than last years hemoglobin which was normal. Patient had an elevated BUN. This was concerning for an upper GI source given her history. She was found to have a supratherapeutic INR. The patient had treatment initiated with Pepcid, Protonix bolus and drip, and a small dose of IV vitamin K. The patient will need to be carefully treated regarding her supratherapeutic INR in light of this GI bleed. She does have a history of a thromboembolic event after her Coumadin was modified for surgical procedure. Further management in the hospital was deemed appropriate. Consultation was made with internal medicine. Patient was evaluated in the ER by the [facility] and admitted for further management. Triage Nursing notes reviewed and agree them. Vital Signs: reviewed and remarkable for no significant abnormalities Differential diagnosis: Diverticulosis, AVM, coagulopathy, colitis, inflammatory bowel disease, malignancy, Mary-Curiel tear, esophagitis, peptic ulcer disease, variceal bleed, gastritis, epistaxis, fissure, hemorrhoids, as well as other pathologies. Diagnostics interpreted by me: ECG: Twelve-lead ECG reveals normal sinus rhythm at 77 bpm. There is nonspecific ST wave abnormality present. Flattening of T waves anteriorly. No ST elevation. Cardiac Monitoring: Cardiac monitoring ordered by me: The patient was placed on continuous cardiac monitoring and observed. It revealed a normal sinus rhythm at 73 beats per minute without ectopy or evidence of dysrhythmia. Imaging studies: Deferred HPI: The patient is a 62 year old female who presents to the Emergency Room with complaints of black tarry stools. This started this morning and is the first time that this is happened in 8 years. Patient has a history of peptic ulcer disease. Patient also history of mitral valve replacement and is on Coumadin. Notes that her Coumadin has been above the threshold recently and she was going to modify her outpatient regimen. The patient also notes the following associated symptoms, feeling low energy today. The patient has been prescribed no medications for relieving factors. Current pain is rated as 0/10. Pt denies LOC, headache, fevers, chills, diaphoresis, visual changes, neck pain, chest pain, breathing difficulties, nausea, vomiting, abdominal pain, back pain, hematochezia, urinary symptoms, numbness, focal weakness, lymphadenopathy, rash, or other complaints. ROS: See above HPI for pertinent positives & negatives. A total of 10 systems reviewed and were otherwise negative. PAST MEDICAL HISTORY:See Below , anticoagulated, bleeding ulcer PAST SURGICAL HISTORY:See Below, mitral valve replacement FAMILY HISTORY:See Below SOCIAL HISTORY:See Below, non-smoker HOME MEDICATIONS:See Below ALLERGIES:See Below VITALS:See Below PHYSICAL EXAMINATION: GENERAL: Awake, alert, well-appearing, in no distress HENT: Normocephalic, atraumatic. Oropharynx unremarkable. EYES: Pale conjunctiva. Sclera non-icteric. NECK: Inspection normal. Non-tender. Supple. No nuchal rigidity. FROM. No masses. RESPIRATORY: Clear to auscultation. No wheezes. No rales. Normal respiratory effort. CARDIAC: Normal rate. Normal rhythm. Audible click of mechanical valve. No rubs. Extremities warm and well perfused. Pulses equal. No JVD. GI: Soft, non-distended. No tenderness to palpation. No rebound or guarding. No masses. RECTAL: Deferred. MUSCULOSKELETAL: Atraumatic. Chest examination reveals no tenderness. The back is symmetrical on inspection without obvious abnormality. There is no CVA tenderness to palpation. No joint edema. LOWER EXTREMITIES: Calves are equal size bilaterally and non-tender. No edema. No discoloration. NEURO: Normal sensorium. No sensory or motor deficits noted. SKIN: No rash or jaundice noted. 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 Closure of left atrial appendage at time of surgery. Hx of colonoscopy S/P breast biopsy, right S/P PETER (total abdominal hysterectomy) Status post partial mastectomy of right breast With right axillary SLN biopsy on 10/18/21 Dr. Cabrera Family History Mother Dementia Alzheimer disease Father , 83yo Accident Cerebral aneurysm Atrial fibrillation Brother Obesity Sister No problems noted. Family/Other Breast cancer Maternal aunt Son No problems noted. Daughter No problems noted. Other Cancer Dyslipidemia Social History Smoking Status: Never smoker Tobacco Type: Cigarettes Cigarettes Per Day: 1 PPD x 40yrs; Hx Alcohol Use: No Hx Substance Use: No Preferred Language: Gabonese Communication Ability: Effective Visual Impairment: No Limitations Hearing Ability: Normal Corporate Event Planner Required: No Beliefs That Will Affect Care: None marital status: Current Living Situation: Family Current Living Situation Comment: Grandson lives with her current occupational status: employed Feels Safe at Home: Yes Safety Concerns: Feels Safe At This Time caffeine: Yes (1 cup/day) during the past year weight has: remained stable Assistive Devices: None Allergies Allergies Allergy/AdvReac Type Severity Reaction Status Date / Time No Known Allergies Allergy Verified 08/28/22 18:50 Home Meds Home Medications Medication Instructions Recorded Confirmed pravastatin 20 mg tablet 20 mg PO DAILY 09/22/21 08/28/22 warfarin 4 mg tablet 4 mg PO DIRECTED 09/22/21 08/28/22 amoxicillin 500 mg capsule 2,000 mg PO DIRECTED PRN PRIOR 11/21/21 08/28/22 TO DENTAL APPT. aspirin 81 mg capsule 81 mg PO DAILY 11/21/21 08/28/22 levothyroxine 50 mcg capsule See Rx Instructions .Route .COMPLEX 11/21/21 08/28/22 multivitamin 1 tab PO DAILY 11/21/21 08/28/22 tamoxifen 20 mg tablet 20 mg PO DAILY 11/21/21 08/28/22 Previous Rx's Medication Instructions Recorded dofetilide 250 mcg capsule 250 mcg PO BID #180 caps 05/14/22 Results & Data (ED) Vital Signs Vital Signs - 24 hr 08/28/22 13:39 08/28/22 17:44 08/28/22 18:00 Temperature 36.4 C L Temperature Source Temporal Artery Scan Pulse Rate 82 94 H 73 Pulse Rhythm Regular Respiratory Rate 16 19 15 Respiratory Effort / Characteristics Non-Labored Spontaneous Respiratory Depth Normal Blood Pressure 127/78 136/72 113/58 L Blood Pressure Mean 94 93 76 Pulse Oximetry 99 100 Oxygen Delivery Method Room Air Sepsis Recent Fever Within 48 Hours No Sepsis New/Unexplained Change in Mental Status No Sepsis Action Taken by Nursing No Action Required 08/28/22 18:30 08/28/22 18:30 08/28/22 19:00 Temperature Temperature Source Pulse Rate 77 77 Pulse Rhythm Respiratory Rate 14 14 Respiratory Effort / Characteristics Respiratory Depth Blood Pressure 138/71 129/54 L Blood Pressure Mean 93 79 Pulse Oximetry 100 Oxygen Delivery Method Sepsis Recent Fever Within 48 Hours Sepsis New/Unexplained Change in Mental Status Sepsis Action Taken by Nursing 08/28/22 19:00 08/28/22 19:30 08/28/22 19:30 Temperature Temperature Source Pulse Rate 71 79 Pulse Rhythm Respiratory Rate 16 Respiratory Effort / Characteristics Respiratory Depth Blood Pressure 121/56 L Blood Pressure Mean 77 Pulse Oximetry Oxygen Delivery Method Sepsis Recent Fever Within 48 Hours Sepsis New/Unexplained Change in Mental Status Sepsis Action Taken by Nursing Laboratory Data Result diagrams: 08/28/22 21:31 08/28/22 14:12 Lab Results 08/28/22 08/28/22 08/28/22 Range/Units 14:12 14:12 14:12 WBC 9.63 (4.8-10.8) K/ul RBC 2.66 L (3.93-5.22) M/uL Hgb 8.0 L (12.0-16.0) g/dl Hct 24.5 L (34.1-44.9) % MCV 92.1 (80.0-100.0) fL MCH 30.1 (25.0-34.0) pg MCHC 32.7 (32.0-36.0) g/dL RDW Std Deviation 46.5 H (36.4-46.3) fL RDW Coeff of Tanya 13.9 (11.5-14.5) % Plt Count 222 (130-400) K/uL MPV 11.4 (9.4-12.3) fL Immature Gran % (Auto) 0.3 % Neut % (Auto) 80.6 % Lymph % (Auto) 15.7 % Imperial % (Auto) 3.1 % Eos % (Auto) 0.0 % Baso % (Auto) 0.3 % Neut # (Auto) 7.76 H (1.4-6.5) K/uL Lymph # (Auto) 1.51 (1.2-3.4) K/uL Imperial # (Auto) 0.30 (0.24-0.82) K/uL Eos # (Auto) 0.00 (0-0.50) K/uL Baso # (Auto) 0.03 (0-0.2) K/uL Immature Gran # (Auto) 0.03 H (0.00-0.02) K/uL PT 48.4 H (9.0-12.0) Seconds INR 5.0 H (0.9-1.1) APTT 39.6 H (21.0-31.0) Seconds PTT Ratio 1.4 Sodium 138 (136-145) mmol/L Potassium 4.4 (3.5-5.1) mmol/L Chloride 108 H (98-107) mmol/L Carbon Dioxide 25 (21-32) mmol/L Anion Gap 5 (3-11) BUN 35 H (6-23) mg/dl Creatinine 0.82 (0.6-1.2) mg/dl Est Cr Clr Drug Dosing 59.5 ml/min Est GFR ( Amer) 87.6 ml/min Est GFR (Non-Af Amer) 75.6 ml/min BUN/Creatinine Ratio 42.7 H (10-20) Glucose 109 H (70-99(Fasting)) mg/dl Calcium 8.4 L (8.5-10.1) mg/dl Total Bilirubin 0.3 (0.2-1.0) mg/dl AST 23 (13-39) U/L ALT 13 (7-52) U/L Alkaline Phosphatase 42 (34-104) U/L Total Protein 5.3 L (6.0-8.3) gm/dl Albumin 3.8 (3.4-5.0) gm/dl Globulin 1.5 L (2.5-4.0) gm/dl Albumin/Globulin Ratio 2.5 H (0.9-2) Lipase 56 (11-82) U/L SARS-CoV-2, RNA, NAAT (NEGATIVE) Blood Type Blood Type Recheck Antibody Screen Crossmatch 08/28/22 08/28/22 08/28/22 Range/Units 18:22 18:28 18:55 WBC (4.8-10.8) K/ul RBC (3.93-5.22) M/uL Hgb (12.0-16.0) g/dl Hct (34.1-44.9) % MCV (80.0-100.0) fL MCH (25.0-34.0) pg MCHC (32.0-36.0) g/dL RDW Std Deviation (36.4-46.3) fL RDW Coeff of Tanya (11.5-14.5) % Plt Count (130-400) K/uL MPV (9.4-12.3) fL Immature Gran % (Auto) % Neut % (Auto) % Lymph % (Auto) % Imperial % (Auto) % Eos % (Auto) % Baso % (Auto) % Neut # (Auto) (1.4-6.5) K/uL Lymph # (Auto) (1.2-3.4) K/uL Imperial # (Auto) (0.24-0.82) K/uL Eos # (Auto) (0-0.50) K/uL Baso # (Auto) (0-0.2) K/uL Immature Gran # (Auto) (0.00-0.02) K/uL PT (9.0-12.0) Seconds INR (0.9-1.1) APTT (21.0-31.0) Seconds PTT Ratio Sodium (136-145) mmol/L Potassium (3.5-5.1) mmol/L Chloride (98-107) mmol/L Carbon Dioxide (21-32) mmol/L Anion Gap (3-11) BUN (6-23) mg/dl Creatinine (0.6-1.2) mg/dl Est Cr Clr Drug Dosing ml/min Est GFR ( Amer) ml/min Est GFR (Non-Af Amer) ml/min BUN/Creatinine Ratio (10-20) Glucose (70-99(Fasting)) mg/dl Calcium (8.5-10.1) mg/dl Total Bilirubin (0.2-1.0) mg/dl AST (13-39) U/L ALT (7-52) U/L Alkaline Phosphatase (34-104) U/L Total Protein (6.0-8.3) gm/dl Albumin (3.4-5.0) gm/dl Globulin (2.5-4.0) gm/dl Albumin/Globulin Ratio (0.9-2) Lipase (11-82) U/L SARS-CoV-2, RNA, NAAT NEGATIVE (NEGATIVE) Blood Type O Positive Blood Type Recheck O Positive Antibody Screen NEGATIVE Crossmatch See Detail Administered Medications Dofetilide (Dofetilide 125 Mcg Capsule) 250 mcg PO BID [facility] Stop: 09/27/22 21:18 Last Admin: 08/28/22 22:49 Dose: 250 mcg Documented By: JOHN Pantoprazole Sodium 40 mg/ (Dextrose) 100 mls @ 20 mls/hr IV Q5H [facility] Stop: 09/27/22 18:14 Last Admin: 08/28/22 19:04 Dose: 8 mg/hr, 20 mls/hr Documented By: SARI Sodium Chloride (Nss 1000ml) 1,000 mls @ 125 mls/hr IV .Q8H [facility] Stop: 08/29/22 01:54 Last Admin: 08/28/22 18:26 Dose: 125 mls/hr Documented By: SARI Iron Sucrose 300 mg/ Sodium (Chloride) 265 mls @ 176.667 mls/hr IV DAILY@2100 [facility] Stop: 08/30/22 22:29 Last Admin: 08/28/22 22:11 Dose: 176.7 mls/hr Documented By: JOHN Discontinued Medications Acetaminophen (Acetaminophen 325 Mg Tab) 650 mg PO NOW ONE Stop: 08/28/22 22:01 Last Admin: 08/28/22 22:50 Dose: Not Given Documented By: JOHN Phytonadione 2.5 mg/ Dextrose 50.25 mls @ 100.5 mls/hr IV ONE ONE Stop: 08/28/22 18:24 Last Infusion: 08/28/22 19:05 Dose: 0 mls/hr Documented By: Admin: 08/28/22 18:30 Dose: 100.5 mls/hr Documented By: SARI Pantoprazole Sodium (Protonix Bolus/Drip) 0 mls @ 1 mls/hr IV ONE STA Stop: 08/28/22 17:56 Last Admin: 08/28/22 19:05 Dose: Not Given Documented By: SARI Pantoprazole Sodium 80 mg/ (Dextrose) 120 mls @ 400 mls/hr IV NOW ONE Stop: 08/28/22 18:12 Last Infusion: 08/28/22 19:04 Dose: 0 mls/hr Documented By: Admin: 08/28/22 18:39 Dose: 400 mls/hr Documented By: SARI Famotidine (Pepcid 20mg Iv Push) 20 mg in 5 mls @ 2.5 mls/min IV NOW STA Stop: 08/28/22 17:56 Last Admin: 08/28/22 18:23 Dose: 2.5 mls/min Documented By: SARI Discharge Plan Visit Data Chief Complaint: GI Assessment Stated Complaint: BLACK STOOL, ABD PAIN ED Provider: Serafin Leong Discharge Problem: Acute upper gastrointestinal bleeding, Acute blood loss anemia, Supratherapeutic INR Patient Disposition: Admitted As Inpatient Discharge Instructions Interventions: ED Discharge Assessment Last Done: 08/28/22 20:20
[2022-08-29] MEDS ORDERED: FUROSEMIDE INJ 20 MG/2 ML VIAL IV ONE (01:00)
[2022-08-29] MEDS: PANTOprazole 40 MG in DEXTROSE 5% 100 ML IV SCH ×4 (05:05→19:24)
[2022-08-29] MEDS: SODIUM CHLORIDE 0.9% 1000ML 1,000 ML IV SCH ×2 (05:05→14:23)
[2022-08-29] MEDS: LEVOTHYROXINE SODIUM 25 MCG TABLET PO SCH (06:37)
[2022-08-29 06:51] LABS: Hematocrit (blood only) 30.4 % (34.1-44.9); Hemoglobin 10.8 g/dl (12.0-16.0); Mean Corpuscular Hemoglobin 31.2 pg (25.0-34.0); Mean Corpuscular Hgb Conc 35.5 g/dL (32.0-36.0); Mean Corpuscular Volume 87.9 fL (80.0-100.0); Mean Platelet Volume 11.5 fL (9.4-12.3); Platelet Count 194 K/uL (130-400); RDW Coefficient of Variation 14.2 % (11.5-14.5); RDW Standard Deviation 44.7 fL (36.4-46.3); Red Blood Count 3.46 M/uL (3.93-5.22); White Blood Count 5.66 K/ul (4.8-10.8)
[2022-08-29 07:18] LABS: BUN Creatinine Ratio 23.5 (10-20); Calcium 7.7 mg/dl (8.5-10.1); Creatinine Clr Calc Pharmacy 45.9 ml/min; Est GFR (African American) 70.7 ml/min; Potassium 3.4 mmol/L (3.5-5.1)
[2022-08-29 07:21] LABS: INR 1.5 (0.9-1.1); Prothrombin Time 15.3 Seconds (9.0-12.0)
[2022-08-29] MEDS: DOFETILIDE 125 MCG CAPSULE PO SCH ×2 (08:10→22:51)
[2022-08-29] MEDS: PRAVASTATIN SOD 20 MG TAB PO SCH (08:10)
[2022-08-29] MEDS ORDERED: POTASSIUM CHLORIDE / WTR 10 MEQ/100 ML PLCT IV ONE (08:45)
--- NOTE | 2022-08-29 09:32 | Gastrointestinal Consultation ---
Date of Consultation August 29, 2022 Assessment & Plan (1) Supratherapeutic INR: 62 year old female admitted with melena at home, elevated INR, anemia hgb 7 s/p 2 units w/ hgb 10.8 this AM, w/ normal BUN. She is scheduled for a clipping of brain aneurysm later in the month and notes will need to be cleared from this GI bleeding episode. NPO Will discuss with attending Continue IV PPO bolus and drip Tentative plan for EGD/Colon on Trend H&H Transfuse PRN Monitor and document output Hold ASA, coumadin Thank you for allowing us to participate in the care of this patient. Please call with any acute changes, questions or concerns. Please see addendum below with additional recommendation from my supervising physician. Supervising Physician Co-Signing Physician Notes I have personally seen and examined the patient with SHARON Garnica. Her note reflects my exam and findings. I agree with her impression and plan. GI bleeding in setting of high INR. Will arrange endoscopic eval. Melchor Escalante M.D. History of Present Illness Reason for Consultation: melena Requesting Physician: Bailee Attending Physician: David Morocho MD History of Present Illness 62 year old female with history of afib, breast cancer, hypothyroidism, brain aneurysm scheduled for surgery 09/18 who presented to the ED today with black tarry stool and weakness yesterday, GI asked to evaluate. Pt was seen and evaluated, chart reviewed. Notes that over the last week she has had some fatigue, weakness, taking a lot of naps. Yesterday, had her INR checked and this was found to be elevated. Went home, had some abd cramping, moved large amount of dark tarry stool. This happened x 1 movement. No BRBPR. Has not moved bowels since. Notes this AM she feels tired, weak but denies abd pain, nausea, vomiting or any additional BMs. In the ED, her Hb was 8, INR 5, vitals stable. Given Vit K 2.5 mg in the ED. Transfused x 2 units. No ABD imaging. No recent EGD, PUD years ago in [place]. Colonoscopy 2019 w/ polyps, due for recall 2021. She is on ASA, coumadin daily Denies other NSAIDs No ETOH No tobacco Allergies Allergy/AdvReac Type Severity Reaction Status Date / Time No Known Allergies Allergy Verified 08/28/22 18:50 Home Medications Medication Instructions Recorded Confirmed Type pravastatin 20 mg tablet 20 mg PO DAILY 09/22/21 08/28/22 History warfarin 4 mg tablet 4 mg PO DIRECTED 09/22/21 08/28/22 History amoxicillin 500 mg capsule 2,000 mg PO DIRECTED PRN PRIOR 11/21/21 08/28/22 History TO DENTAL APPT. 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 Closure of left atrial appendage at time of surgery. Hx of colonoscopy S/P breast biopsy, right S/P PETER (total abdominal hysterectomy) Status post partial mastectomy of right breast With right axillary SLN biopsy on 10/18/21 Dr. Cabrera Family History Mother Dementia Alzheimer disease Father , 83yo Accident Cerebral aneurysm Atrial fibrillation Brother Obesity Sister No problems noted. Family/Other Breast cancer Maternal aunt Son No problems noted. Daughter No problems noted. 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 Beliefs That Will Affect Care: None marital status: Current Living Situation: Family Current Living Situation Comment: Grandson lives with her current occupational status: employed Feels Safe at Home: Yes Safety Concerns: Feels Safe At This Time caffeine: Yes (1 cup/day) during the past year weight has: remained stable Assistive Devices: None Review of Systems Review of Systems: All systems reviewed & are unremarkable except as noted in HPI & below Physical Exam Constitutional: WD/WN, vitals as above Neck: trachea midline Respiratory: normal respiratory effort, lungs clear to auscultation Cardiovascular: Rate/Rhythm: regular rate and regular rhythm Gastrointestinal (Abdomen): normal bowel sounds, soft, nontender, no hepatospl enomegaly Skin: no rashes, warm and dry Results & Data ([facility]) Vital Signs (Past 12 Hours) Vital Signs Temp Pulse Pulse Resp BP BP Pulse Ox 08/29/22 07:00 58 L 08/29/22 07:05 36.6 C 59 L 16 100/62 98 08/29/22 04:42 36.6 C 58 L 16 87/57 L 96 08/29/22 03:42 36.6 C 63 16 88/49 L 08/29/22 02:42 36.6 C 63 16 102/66 98 08/29/22 02:12 36.7 C 66 17 99/63 L 97 08/29/22 01:57 36.8 C 62 16 101/63 99 08/29/22 01:38 36.7 C 74 16 102/59 L 100 08/29/22 01:14 36.6 C 63 16 102/61 98 08/29/22 00:45 36.8 C 71 16 91/53 L 96 08/28/22 23:45 36.8 C 73 16 105/55 L 98 08/28/22 23:15 36.8 C 74 16 116/72 100 08/28/22 23:00 36.7 C 73 16 106/57 L 96 08/28/22 22:44 36.8 C 75 18 124/69 100 O2 Del Method O2 Flow Rate 08/29/22 07:00 08/29/22 07:05 Room Air 08/29/22 04:42 08/29/22 03:42 99 08/29/22 02:42 08/29/22 02:12 08/29/22 01:57 08/29/22 01:38 08/29/22 01:14 08/29/22 00:45 08/28/22 23:45 08/28/22 23:15 08/28/22 23:00 08/28/22 22:44 Laboratory Results 08/29/22 08/29/22 08/29/22 Range/Units 09:11 05:43 05:43 WBC (4.8-10.8) K/ul RBC (3.93-5.22) M/uL Hgb Pending (12.0-16.0) g/dl Hct Pending (34.1-44.9) % MCV (80.0-100.0) fL MCH (25.0-34.0) pg MCHC (32.0-36.0) g/dL RDW Std Deviation (36.4-46.3) fL RDW Coeff of Tanya (11.5-14.5) % Plt Count (130-400) K/uL MPV (9.4-12.3) fL Immature Gran % (Auto) % Neut % (Auto) % Lymph % (Auto) % Andrews % (Auto) % Eos % (Auto) % Baso % (Auto) % Neut # (Auto) (1.4-6.5) K/uL Lymph # (Auto) (1.2-3.4) K/uL Andrews # (Auto) (0.24-0.82) K/uL Eos # (Auto) (0-0.50) K/uL Baso # (Auto) (0-0.2) K/uL Immature Gran # (Auto) (0.00-0.02) K/uL PT 15.3 H (9.0-12.0) Seconds INR 1.5 H (0.9-1.1) APTT (21.0-31.0) Seconds PTT Ratio Sodium 142 (136-145) mmol/L Potassium 3.4 L D (3.5-5.1) mmol/L Chloride 110 H (98-107) mmol/L Carbon Dioxide 27 (21-32) mmol/L Anion Gap 5 (3-11) BUN 23 (6-23) mg/dl Creatinine 0.98 (0.6-1.2) mg/dl Est Cr Clr Drug Dosing 45.9 ml/min Est GFR ( Amer) 70.7 ml/min Est GFR (Non-Af Amer) 61.0 ml/min BUN/Creatinine Ratio 23.5 H (10-20) Glucose 100 H (70-99(Fasting)) mg/dl Calcium 7.7 L (8.5-10.1) mg/dl Total Bilirubin (0.2-1.0) mg/dl AST (13-39) U/L ALT (7-52) U/L Alkaline Phosphatase (34-104) U/L Total Protein (6.0-8.3) gm/dl Albumin (3.4-5.0) gm/dl Globulin (2.5-4.0) gm/dl Albumin/Globulin Ratio (0.9-2) Lipase (11-82) U/L SARS-CoV-2, RNA, NAAT (NEGATIVE) Blood Type Blood Type Recheck Antibody Screen Crossmatch 08/29/22 08/28/22 08/28/22 Range/Units 05:43 21:31 20:35 WBC 5.66 (4.8-10.8) K/ul RBC 3.46 L (3.93-5.22) M/uL Hgb 10.8 L D 7.2 L 6.8 L* (12.0-16.0) g/dl Hct 30.4 L 22.1 L 20.9 L* (34.1-44.9) % MCV 87.9 (80.0-100.0) fL MCH 31.2 (25.0-34.0) pg MCHC 35.5 (32.0-36.0) g/dL RDW Std Deviation 44.7 (36.4-46.3) fL RDW Coeff of Tanya 14.2 (11.5-14.5) % Plt Count 194 (130-400) K/uL MPV 11.5 (9.4-12.3) fL Immature Gran % (Auto) % Neut % (Auto) % Lymph % (Auto) % Andrews % (Auto) % Eos % (Auto) % Baso % (Auto) % Neut # (Auto) (1.4-6.5) K/uL Lymph # (Auto) (1.2-3.4) K/uL Andrews # (Auto) (0.24-0.82) K/uL Eos # (Auto) (0-0.50) K/uL Baso # (Auto) (0-0.2) K/uL Immature Gran # (Auto) (0.00-0.02) K/uL PT (9.0-12.0) Seconds INR (0.9-1.1) APTT (21.0-31.0) Seconds PTT Ratio Sodium (136-145) mmol/L Potassium (3.5-5.1) mmol/L Chloride (98-107) mmol/L Carbon Dioxide (21-32) mmol/L Anion Gap (3-11) BUN (6-23) mg/dl Creatinine (0.6-1.2) mg/dl Est Cr Clr Drug Dosing ml/min Est GFR ( Amer) ml/min Est GFR (Non-Af Amer) ml/min BUN/Creatinine Ratio (10-20) Glucose (70-99(Fasting)) mg/dl Calcium (8.5-10.1) mg/dl Total Bilirubin (0.2-1.0) mg/dl AST (13-39) U/L ALT (7-52) U/L Alkaline Phosphatase (34-104) U/L Total Protein (6.0-8.3) gm/dl Albumin (3.4-5.0) gm/dl Globulin (2.5-4.0) gm/dl Albumin/Globulin Ratio (0.9-2) Lipase (11-82) U/L SARS-CoV-2, RNA, NAAT (NEGATIVE) Blood Type Blood Type Recheck Antibody Screen Crossmatch 08/28/22 08/28/22 08/28/22 Range/Units 18:55 18:28 18:22 WBC (4.8-10.8) K/ul RBC (3.93-5.22) M/uL Hgb (12.0-16.0) g/dl Hct (34.1-44.9) % MCV (80.0-100.0) fL MCH (25.0-34.0) pg MCHC (32.0-36.0) g/dL RDW Std Deviation (36.4-46.3) fL RDW Coeff of Tanya (11.5-14.5) % Plt Count (130-400) K/uL MPV (9.4-12.3) fL Immature Gran % (Auto) % Neut % (Auto) % Lymph % (Auto) % Andrews % (Auto) % Eos % (Auto) % Baso % (Auto) % Neut # (Auto) (1.4-6.5) K/uL Lymph # (Auto) (1.2-3.4) K/uL Andrews # (Auto) (0.24-0.82) K/uL Eos # (Auto) (0-0.50) K/uL Baso # (Auto) (0-0.2) K/uL Immature Gran # (Auto) (0.00-0.02) K/uL PT (9.0-12.0) Seconds INR (0.9-1.1) APTT (21.0-31.0) Seconds PTT Ratio Sodium (136-145) mmol/L Potassium (3.5-5.1) mmol/L Chloride (98-107) mmol/L Carbon Dioxide (21-32) mmol/L Anion Gap (3-11) BUN (6-23) mg/dl Creatinine (0.6-1.2) mg/dl Est Cr Clr Drug Dosing ml/min Est GFR ( Amer) ml/min Est GFR (Non-Af Amer) ml/min BUN/Creatinine Ratio (10-20) Glucose (70-99(Fasting)) mg/dl Calcium (8.5-10.1) mg/dl Total Bilirubin (0.2-1.0) mg/dl AST (13-39) U/L ALT (7-52) U/L Alkaline Phosphatase (34-104) U/L Total Protein (6.0-8.3) gm/dl Albumin (3.4-5.0) gm/dl Globulin (2.5-4.0) gm/dl Albumin/Globulin Ratio (0.9-2) Lipase (11-82) U/L SARS-CoV-2, RNA, NAAT NEGATIVE (NEGATIVE) Blood Type O Positive Blood Type Recheck O Positive Antibody Screen NEGATIVE Crossmatch See Detail 08/28/22 08/28/22 08/28/22 Range/Units 14:12 14:12 14:12 WBC 9.63 (4.8-10.8) K/ul RBC 2.66 L (3.93-5.22) M/uL Hgb 8.0 L (12.0-16.0) g/dl Hct 24.5 L (34.1-44.9) % MCV 92.1 (80.0-100.0) fL MCH 30.1 (25.0-34.0) pg MCHC 32.7 (32.0-36.0) g/dL RDW Std Deviation 46.5 H (36.4-46.3) fL RDW Coeff of Tanya 13.9 (11.5-14.5) % Plt Count 222 (130-400) K/uL MPV 11.4 (9.4-12.3) fL Immature Gran % (Auto) 0.3 % Neut % (Auto) 80.6 % Lymph % (Auto) 15.7 % Andrews % (Auto) 3.1 % Eos % (Auto) 0.0 % Baso % (Auto) 0.3 % Neut # (Auto) 7.76 H (1.4-6.5) K/uL Lymph # (Auto) 1.51 (1.2-3.4) K/uL Andrews # (Auto) 0.30 (0.24-0.82) K/uL Eos # (Auto) 0.00 (0-0.50) K/uL Baso # (Auto) 0.03 (0-0.2) K/uL Immature Gran # (Auto) 0.03 H (0.00-0.02) K/uL PT 48.4 H (9.0-12.0) Seconds INR 5.0 H (0.9-1.1) APTT 39.6 H (21.0-31.0) Seconds PTT Ratio 1.4 Sodium 138 (136-145) mmol/L Potassium 4.4 (3.5-5.1) mmol/L Chloride 108 H (98-107) mmol/L Carbon Dioxide 25 (21-32) mmol/L Anion Gap 5 (3-11) BUN 35 H (6-23) mg/dl Creatinine 0.82 (0.6-1.2) mg/dl Est Cr Clr Drug Dosing 59.5 ml/min Est GFR ( Amer) 87.6 ml/min Est GFR (Non-Af Amer) 75.6 ml/min BUN/Creatinine Ratio 42.7 H (10-20) Glucose 109 H (70-99(Fasting)) mg/dl Calcium 8.4 L (8.5-10.1) mg/dl Total Bilirubin 0.3 (0.2-1.0) mg/dl AST 23 (13-39) U/L ALT 13 (7-52) U/L Alkaline Phosphatase 42 (34-104) U/L Total Protein 5.3 L (6.0-8.3) gm/dl Albumin 3.8 (3.4-5.0) gm/dl Globulin 1.5 L (2.5-4.0) gm/dl Albumin/Globulin Ratio 2.5 H (0.9-2) Lipase 56 (11-82) U/L SARS-CoV-2, RNA, NAAT (NEGATIVE) Blood Type Blood Type Recheck Antibody Screen Crossmatch
[2022-08-29 09:33] LABS: Hematocrit (blood only) 29.3 % (34.1-44.9); Hemoglobin 10.2 g/dl (12.0-16.0)
--- NOTE | 2022-08-29 10:40 | Hospitalist Progress Note ---
Date of Service August 29, 2022 Assessment & Plan (1) Acute blood loss anemia: (2) GIB (gastrointestinal bleeding): (3) H/O: duodenal ulcer: (4) Symptomatic anemia: Plan: present on admission with large amount black tarry stool possible UGI bleeding with h/o dudoenal ulcer H/o PUD with duodenal ulcer requiring cauterization 8 years back. INR on admission 5 and received 2.5mg vit K hgb dropped to 6.8 yesterday with baseline hgb 12-13, received 2 units PRBC Hgb 10.2 today gastro on board - plan for EGD and colonoscopy tomorrow case discussed with gastro about low dose of heparin drip while pt off coumadin due to history of mitral valve with mechanical vavle gastro suggested to hold the anticoagulant since pt had history of duodenal ulcer back in 2007, then pt had a large amount black tarry stool with hgb dropped to 6.8 that required transfusion this admission Case discussed with cardiology dr. Pendleton that recommended to hold IV heparin drip due to GI bleed that required transfusion. Since pt plan for the procedure tomorrow at 10AM, he recommended to start anticoagulant Heparin drip as soon as the procedure done if no sign of bleeding He recommended to start the coumadin later, since it will take time until INR therapeutic Plan discussed with patient and agrees to hold anticoagulant bridging for 24 hrs due to risk of bleeding Continue monitor CBC Continue clear liquid diet for now NPO after midnight (5) Supratherapeutic INR: Plan: INR 5 on coumadin and s/p 2.5 mg iv vit K for reversal but cautious given her mechanical MV and h/o TIA when her coumadin was held and bridged with lovenox. Goal INR is 2.5-3.5, ideally around 3 per cardiology INR 1.5 today Coumadin held for GI bleed, plan to restart tonight Plan for EGD and Colonoscopy tomorrow (6) Mechanical heart valve present: Plan: Continue to hold coumadin for today, then resume with anticoagulant tomorrow with bridging tomorrow after 10 AM (7) Paroxysmal atrial fibrillation: Plan: rate control continue dofetilide. Coumadin on hold due to GI bleed (8) Breast cancer, right: Plan: s/p treatment. Now on tamoxifen as ER positive. (9) Brain aneurysm: Plan: Scheduled for surgery on 09/18 (10) Hypothyroid: Plan: continue synthroid Plan DVT ppx- Coumadin on hold due to GI bleed Full code Admission and Anticipated Discharge Date Admission Date: August 28, 2022 Subjective Pt was seen and examined for follow up of GI bleed Sitting in chair with no acute distress Pt said that she has not had any episode of GI bleed today She had 2 units of PRBC last night Denies any chest pain, palpitation, dizziness and SOB Review of Systems Review of Systems: All systems reviewed & are unremarkable except as noted in Subjective Physical Exam Physical Exam: General- No acute distress Head- atraumatic Eyes- PERRL, EOMI, ENT- oropharynx clear Neck- supple, no JVD Lungs- clear to auscultation Heart- regular rhythm; very low grade murmur Abdomen- normal bowel sounds, soft, nontender Extremities- no calf tenderness Neuro- alert, oriented x 3; PERRL, EOMI; no facial palsy; no dysarthria Skin- warm & dry Results & Data Results & Data ([facility]) Vital Signs (Past 12 Hours) Vital Signs Temp Pulse Pulse Resp BP BP Pulse Ox 08/29/22 07:00 58 L 08/29/22 07:05 36.6 C 59 L 16 100/62 98 08/29/22 04:42 36.6 C 58 L 16 87/57 L 96 08/29/22 03:42 36.6 C 63 16 88/49 L 08/29/22 02:42 36.6 C 63 16 102/66 98 08/29/22 02:12 36.7 C 66 17 99/63 L 97 08/29/22 01:57 36.8 C 62 16 101/63 99 08/29/22 01:38 36.7 C 74 16 102/59 L 100 08/29/22 01:14 36.6 C 63 16 102/61 98 08/29/22 00:45 36.8 C 71 16 91/53 L 96 08/28/22 23:45 36.8 C 73 16 105/55 L 98 08/28/22 23:15 36.8 C 74 16 116/72 100 08/28/22 23:00 36.7 C 73 16 106/57 L 96 08/28/22 22:44 36.8 C 75 18 124/69 100 O2 Del Method O2 Flow Rate 08/29/22 07:00 08/29/22 07:05 Room Air 08/29/22 04:42 08/29/22 03:42 99 08/29/22 02:42 08/29/22 02:12 08/29/22 01:57 08/29/22 01:38 08/29/22 01:14 08/29/22 00:45 08/28/22 23:45 08/28/22 23:15 08/28/22 23:00 08/28/22 22:44
[2022-08-29 15:00] LABS: Hematocrit (blood only) 28.5 % (34.1-44.9); Hemoglobin 9.8 g/dl (12.0-16.0)
[2022-08-29] MEDS ORDERED: LAVAGE SOLUTION 4000ML PO SCH (15:00)
[2022-08-29] MEDS ORDERED: POTASSIUM CHLORIDE CRTAB 20 MEQ TABCR PO STA (16:33)
[2022-08-29 20:55] LABS: Hematocrit (blood only) 32.3 % (34.1-44.9); Hemoglobin 11.2 g/dl (12.0-16.0)
[2022-08-29] MEDS: IRON SUCROSE 300 MG in SODIUM CHLORIDE 0.9% 250 ML IV SCH (21:21)
[2022-08-29] MEDS ORDERED: LAVAGE SOLUTION 4000ML PO ONE (22:00)
[2022-08-29] MEDS ORDERED: POTASSIUM CHLORIDE PWD 20 MEQ PACK PO STA (22:36)
--- NOTE | 2022-08-29 23:06 | Communication Note ---
Date of Service: August 29, 2022 Notified by RN of QT of 520 msec on the monitor. Patient asymptomatic as per RN. NSR on the monitor. QTC on EKG 517 msec. AP Prolonged QTC Hypokalemia Tikosyn Rx for A. fib Replace potassium (goal serum potassium of at least 4) Check magnesium and replace as needed (goal serum magnesium of at least 2) Hold Tikosyn for now. Case discussed with Dr. Morocho ([facility] jboss architect on-call.) He agrees with holding Tikosyn dose for now and contacting patient's jboss architect, Dr. Pendleton, in a.m. for additional recommendations.
[2022-08-29] MEDS: MAGNESIUM SULFATE / D5W 1 GM/100 ML BAG IV SCH (23:40)
[2022-08-30] MEDS: SODIUM CHLORIDE 0.9% 1000ML 1,000 ML IV SCH ×3 (00:13→08:25)
[2022-08-30] MEDS: PANTOprazole 40 MG in DEXTROSE 5% 100 ML IV SCH ×3 (00:24→10:49)
[2022-08-30] MEDS: MAGNESIUM SULFATE / D5W 1 GM/100 ML BAG IV SCH (01:40)
[2022-08-30 06:20] LABS: Hematocrit (blood only) 27.4 % (34.1-44.9); Hemoglobin 9.4 g/dl (12.0-16.0); Mean Corpuscular Hemoglobin 30.5 pg (25.0-34.0); Mean Corpuscular Hgb Conc 34.3 g/dL (32.0-36.0); Platelet Count 178 K/uL (130-400); RDW Coefficient of Variation 14.6 % (11.5-14.5); RDW Standard Deviation 45.7 fL (36.4-46.3); Red Blood Count 3.08 M/uL (3.93-5.22); White Blood Count 7.05 K/ul (4.8-10.8)
[2022-08-30] MEDS ORDERED: LEVOTHYROXINE SODIUM 50 MCG TABLET PO SCH (06:30)
[2022-08-30 06:31] LABS: INR 1.2 (0.9-1.1); Prothrombin Time 12.4 Seconds (9.0-12.0)
[2022-08-30 07:00] LABS: BUN Creatinine Ratio 10.8 (10-20); Calcium 7.4 mg/dl (8.5-10.1); Est GFR (African American) 99.2 ml/min; Est GFR (Non-African American) 85.6 ml/min; Magnesium 2.3 mg/dl (1.7-2.4); Potassium 3.6 mmol/L (3.5-5.1)
[2022-08-30] MEDS: PRAVASTATIN SOD 20 MG TAB PO SCH (07:32)
--- NOTE | 2022-08-30 08:21 | Electrocardiogram Report ---
Test Reason : Blood Pressure : / mmHG Vent. Rate : 062 BPM Atrial Rate : 062 BPM P-R Int : 198 ms QRS Dur : 080 ms QT Int : 510 ms P-R-T Axes : 075 012 013 degrees QTc Int : 517 ms Sinus rhythm with Premature atrial complexes Nonspecific ST abnormality Prolonged QT Abnormal ECG When compared with ECG of 28-AUG-2022 14:04, Premature atrial complexes are now Present T wave inversion no longer evident in Lateral leads QT has lengthened Confirmed by Hunter Pendleton ([id number]) on 08/30/2022 8:21:05 AM Referred By: REFERRED SELF Confirmed By:Juan Luis Pendleton
--- NOTE | 2022-08-30 09:18 | Gastroenterology Progress Note ---
Date of Service August 30, 2022 Assessment & Plan (1) Supratherapeutic INR: Plan: 62 year old female admitted with melena at home, elevated INR, anemia hgb 7 s/p 2 units w/ hgb 10.8 this AM, w/ normal BUN. She is scheduled for a clipping of brain aneurysm later in the month and notes will need to be cleared from this GI bleeding episode. She is NPO for EGD/Colonoscopy examination, she had black stools at onset of prep but now notes clear output NPO EGD/Colon today Trend H&H Transfuse PRN Monitor and document output Hold ASA, coumadin today Thank you for allowing us to participate in the care of this patient. Please call with any acute changes, questions or concerns. Please see addendum below with additional recommendation from my supervising physician. Admission and Anticipated Discharge Date Admission Date: August 28, 2022 Supervising Physician Co-Signing Physician Notes I have personally seen and examined the patient with SHARON Garnica. Her note reflects my exam and findings. I agree with her impression and plan. Planning EGD/Colonoscopy today. Melchor Escalante M.D. Subjective Pt was seen and evaluated, chart reviewed. NPO for EGD/Colon Notes she had some black stools at onset of prepping but these cleared up Now reports, clear, liquid stools. Review of Systems Review of Systems: All systems reviewed & are unremarkable except as noted in HPI & below Physical Exam Constitutional: WD/WN, vitals as above Neck: trachea midline Respiratory: normal respiratory effort, lungs clear to auscultation Cardiovascular: Rate/Rhythm: regular rate and regular rhythm Gastrointestinal (Abdomen): normal bowel sounds, soft, nontender, no hepatosplenomegaly Skin: no rashes, warm and dry Results & Data ([facility]) Vital Signs (Past 12 Hours) Vital Signs Temp Pulse Pulse Pulse Resp BP Pulse Ox 08/30/22 07:53 36 C L 66 16 99/63 L 97 08/30/22 07:00 61 08/30/22 03:00 36.7 C 71 16 119/63 97 08/29/22 22:25 58 L 08/29/22 23:00 36.5 C 63 18 114/55 L 99 08/29/22 22:24 80 122/54 L 08/29/22 21:25 76 110/72 O2 Del Method 08/30/22 07:53 Room Air 08/30/22 07:00 08/30/22 03:00 Room Air 08/29/22 22:25 08/29/22 23:00 Room Air 08/29/22 22:24 08/29/22 21:25 Laboratory Results 08/30/22 08/30/22 08/30/22 Range/Units 05:46 05:46 05:46 WBC 7.05 (4.8-10.8) K/ul RBC 3.08 L (3.93-5.22) M/uL Hgb 9.4 L (12.0-16.0) g/dl Hct 27.4 L (34.1-44.9) % MCV 89.0 (80.0-100.0) fL MCH 30.5 (25.0-34.0) pg MCHC 34.3 (32.0-36.0) g/dL RDW Std Deviation 45.7 (36.4-46.3) fL RDW Coeff of Tanya 14.6 H (11.5-14.5) % Plt Count 178 (130-400) K/uL MPV 11.0 (9.4-12.3) fL PT 12.4 H (9.0-12.0) Seconds INR 1.2 H (0.9-1.1) Sodium 144 (136-145) mmol/L Potassium 3.6 (3.5-5.1) mmol/L Chloride 115 H (98-107) mmol/L Carbon Dioxide 23 (21-32) mmol/L Anion Gap 6 (3-11) BUN 8 (6-23) mg/dl Creatinine 0.74 (0.6-1.2) mg/dl Est Cr Clr Drug Dosing 67.0 ml/min Est GFR ( Amer) 99.2 ml/min Est GFR (Non-Af Amer) 85.6 ml/min BUN/Creatinine Ratio 10.8 (10-20) Glucose 102 H (70-99(Fasting)) mg/dl Calcium 7.4 L (8.5-10.1) mg/dl Magnesium 2.3 (1.7-2.4) mg/dl Crossmatch 08/29/22 08/29/22 08/29/22 Range/Units 20:41 14:54 14:51 WBC (4.8-10.8) K/ul RBC (3.93-5.22) M/uL Hgb 11.2 L 9.8 L (12.0-16.0) g/dl Hct 32.3 L 28.5 L (34.1-44.9) % MCV (80.0-100.0) fL MCH (25.0-34.0) pg MCHC (32.0-36.0) g/dL RDW Std Deviation (36.4-46.3) fL RDW Coeff of Tanya (11.5-14.5) % Plt Count (130-400) K/uL MPV (9.4-12.3) fL PT (9.0-12.0) Seconds INR (0.9-1.1) Sodium (136-145) mmol/L Potassium (3.5-5.1) mmol/L Chloride (98-107) mmol/L Carbon Dioxide (21-32) mmol/L Anion Gap (3-11) BUN (6-23) mg/dl Creatinine (0.6-1.2) mg/dl Est Cr Clr Drug Dosing ml/min Est GFR ( Amer) ml/min Est GFR (Non-Af Amer) ml/min BUN/Creatinine Ratio (10-20) Glucose (70-99(Fasting)) mg/dl Calcium (8.5-10.1) mg/dl Magnesium 1.7 (1.7-2.4) mg/dl Crossmatch 08/29/22 08/28/22 Range/Units 09:11 18:28 WBC (4.8-10.8) K/ul RBC (3.93-5.22) M/uL Hgb 10.2 L (12.0-16.0) g/dl Hct 29.3 L (34.1-44.9) % MCV (80.0-100.0) fL MCH (25.0-34.0) pg MCHC (32.0-36.0) g/dL RDW Std Deviation (36.4-46.3) fL RDW Coeff of Tanya (11.5-14.5) % Plt Count (130-400) K/uL MPV (9.4-12.3) fL PT (9.0-12.0) Seconds INR (0.9-1.1) Sodium (136-145) mmol/L Potassium (3.5-5.1) mmol/L Chloride (98-107) mmol/L Carbon Dioxide (21-32) mmol/L Anion Gap (3-11) BUN (6-23) mg/dl Creatinine (0.6-1.2) mg/dl Est Cr Clr Drug Dosing ml/min Est GFR ( Amer) ml/min Est GFR (Non-Af Amer) ml/min BUN/Creatinine Ratio (10-20) Glucose (70-99(Fasting)) mg/dl Calcium (8.5-10.1) mg/dl Magnesium (1.7-2.4) mg/dl Crossmatch See Detail
--- NOTE | 2022-08-30 10:00 | Hospitalist Progress Note ---
Date of Service August 30, 2022 Assessment & Plan (1) Acute blood loss anemia: (2) GIB (gastrointestinal bleeding): (3) H/O: duodenal ulcer: (4) Symptomatic anemia: Plan: present on admission with large amount black tarry stool possible UGI bleeding with h/o dudoenal ulcer H/o PUD with duodenal ulcer requiring cauterization 8 years back. INR on admission 5 and received 2.5mg vit K hgb dropped to 6.8 yesterday with baseline hgb 12-13, received 2 units PRBC Hgb 10.2 today gastro on board - plan for EGD and colonoscopy tomorrow case discussed with gastro about low dose of heparin drip while pt off coumadin due to history of mitral valve with mechanical vavle gastro suggested to hold the anticoagulant since pt had history of duodenal ulcer back in 2007, then pt had a large amount black tarry stool with hgb dropped to 6.8 that required transfusion this admission Case discussed with cardiology dr. Pendleton that recommended to hold IV heparin drip due to GI bleed that required transfusion. Since pt plan for the procedure tomorrow at 10AM, he recommended to start anticoagulant Heparin drip as soon as the procedure done if no sign of bleeding He recommended to start the coumadin later, since it will take time until INR therapeutic Plan discussed with patient and agrees to hold anticoagulant bridging for 24 hrs due to risk of bleeding 08/30/22 Hgb 9.4 this morning Plan for colonoscopy and EGD today Will start on IV heparin after the scope if no evidence of active bleeding Keep NPO for now Continue monitor hgb (5) Supratherapeutic INR: Plan: INR 5 on coumadin and s/p 2.5 mg iv vit K for reversal but cautious given her mechanical MV and h/o TIA when her coumadin was held and bridged with lovenox. Goal INR is 2.5-3.5, ideally around 3 per cardiology INR 1.2 today Anticoagulant on hold due to GI bleed Will resume coumadin today (6) Mechanical heart valve present: Plan: Coumadin on hold due to GI bleed Will start on anticoagulant with bridging after colonoscopy/EGD if no signs of active bleeding (7) Paroxysmal atrial fibrillation: Plan: rate control Dofetilide was placed on hold last night due to QTC prolongation Coumadin on hold due to GI bleed cardiology consulted (8) QT prolongation: Plan: EKG revealed QTC 457 Tikosyn placed on hold Repeat EKG today showed QTC 457 Cardiology consult Continue monitor closely (9) Brain aneurysm: Plan: Scheduled for surgery on 09/18 (10) Breast cancer, right: Plan: s/p treatment. Now on tamoxifen as ER positive. (11) Hypothyroid: Plan: continue synthroid Plan DVT ppx- Coumadin on hold due to GI bleed Full code Admission and Anticipated Discharge Date Admission Date: August 28, 2022 Subjective Pt was seen and examined for follow up of GI bleed Sitting in chair with no acute distress Yesterday during the prep, the first few episode of BM, she had dark stool She said that her BM is getting clear now Denies any chest pain, palpitation, dizziness and SOB Review of Systems Review of Systems: All systems reviewed & are unremarkable except as noted in Subjective Physical Exam Physical Exam: General- No acute distress Head- atraumatic Eyes- PERRL, EOMI, ENT- oropharynx clear Neck- supple, no JVD Lungs- clear to auscultation Heart- regular rhythm; very low grade murmur Abdomen- normal bowel sounds, soft, nontender Extremities- no calf tenderness Neuro- alert, oriented x 3; PERRL, EOMI; no facial palsy; no dysarthria Skin- warm & dry Results & Data Results & [facility] ([facility]) Vital Signs (Past 12 Hours) Vital Signs Temp Pulse Pulse Pulse Resp BP Pulse Ox 08/30/22 07:53 36 C L 66 16 99/63 L 97 08/30/22 07:00 61 08/30/22 03:00 36.7 C 71 16 119/63 97 08/29/22 22:25 58 L 08/29/22 23:00 36.5 C 63 18 114/55 L 99 08/29/22 22:24 80 122/54 L O2 Del Method 08/30/22 07:53 Room Air 08/30/22 07:00 08/30/22 03:00 Room Air 08/29/22 22:25 08/29/22 23:00 Room Air 08/29/22 22:24
--- NOTE | 2022-08-30 11:20 | History & Physical Report ---
Date of Service August 30, 2022 Assessment & Plan (1) GI bleed: Plan: Stable for EGD/[facility] Admission and Anticipated Discharge Date Admission Date: August 28, 2022 History of Present Illness Chief Complaint: GI bleed Primary Care Provider: Jose Garibay MD Pt with GI bleed for EGD/[facility] Allergies Allergy/AdvReac Type Severity Reaction Status Date / Time No Known Allergies Allergy Verified 08/28/22 18:50 Home Medications Medication Instructions Recorded Confirmed Type pravastatin 20 mg tablet 20 mg PO DAILY 09/22/21 08/28/22 History warfarin 4 mg tablet 4 mg PO DIRECTED 09/22/21 08/28/22 History amoxicillin 500 mg capsule 2,000 mg PO DIRECTED PRN PRIOR 11/21/21 08/28/22 History TO DENTAL APPT. 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 Closure of left atrial appendage at time of surgery. Hx of colonoscopy S/P breast biopsy, right S/P PETER (total abdominal hysterectomy) Status post partial mastectomy of right breast With right axillary SLN biopsy on 10/18/21 Dr. Cabrera Family History Mother Dementia Alzheimer disease Father , 83yo Accident Cerebral aneurysm Atrial fibrillation Brother Obesity Sister No problems noted. Family/Other Breast cancer Maternal aunt Son No problems noted. Daughter No problems noted. Other Cancer Dyslipidemia Social History Smoking Status: Never smoker Tobacco Type: Cigarettes Cigarettes Per Day: 1 PPD x 40yrs; Hx Alcohol Use: No Hx Substance Use: No Preferred Language: Wallisian Communication Ability: Effective Visual Impairment: No Limitations Hearing Ability: Normal Floatman Required: No Beliefs That Will Affect Care: None marital status: Current Living Situation: Family Current Living Situation Comment: Grandson lives with her current occupational status: employed Feels Safe at Home: Yes Safety Concerns: Feels Safe At This Time caffeine: Yes (1 cup/day) during the past year weight has: remained stable Assistive Devices: None Physical Exam Constitutional: WD/WN, vitals as above Respiratory: normal respiratory effort, lungs clear to auscultation Cardiovascular: RRR, no murmur, no edema Gastrointestinal (Abdomen): normal bowel sounds, soft, nontender, no hepatosplenomegaly Results & Data ([facility]) Vital Signs (Past 12 Hours) Vital Signs Temp Pulse Pulse Resp BP Pulse Ox O2 Del Method 08/30/22 11:04 36.6 C 60 17 127/74 99 Room Air 08/30/22 07:53 36 C L 66 16 99/63 L 97 Room Air 08/30/22 07:00 61 08/30/22 03:00 36.7 C 71 16 119/63 97 Room Air Code Status & VTE Plan VTE Prophylaxis Plan VTE Prophylaxis will be ordered: Yes
[2022-08-30] MEDS ORDERED: ePHEDrine sulfate 50 MG/ML AMP IV PRN (11:38)
[2022-08-30] MEDS ORDERED: ATROPINE SULFATE 0.1 MG/ML 10ML SYR IV PRN (11:38)
--- NOTE | 2022-08-30 11:41 | Anesthesiology Consultation ---
Date of Service August 30, 2022 Assessment & Plan Chart Review Chart Review: Acceptable Risk for Surgery and Patient NOT seen in Pre Admission Testing Consults Requested none ASA ASA4 Proposed Anesthesia Anesthesia Type: MAC Risk / Benefits Reviewed With: PT / POA / Parent / Guardian, Accepts Plan and Informed Consent Obtained History Surgery Operation Date: 08/30/22 16:30 Proposed Procedures p Colonoscopy EGD Dr Escalante - Melchor Escalante MD Height/Weight Height: 5 ft 2 in Weight: 63.1 kg Allergies Allergy/AdvReac Type Severity Reaction Status Date / Time No Known Allergies Allergy Verified 08/28/22 18:50 Medications Home Medications Medication Instructions Recorded Confirmed Last Taken pravastatin 20 mg tablet 20 mg PO DAILY 09/22/21 08/28/22 08/28/22 warfarin 4 mg tablet 4 mg PO DIRECTED 09/22/21 08/28/22 08/28/22 HELD PER PT. amoxicillin 500 mg capsule 2,000 mg PO DIRECTED PRN PRIOR 11/21/21 08/28/22 U nknown TO DENTAL APPT. aspirin 81 mg capsule 81 mg PO DAILY 11/21/21 08/28/22 08/28/22 levothyroxine 50 mcg capsule See Rx Instructions .Route .COMPLEX 11/21/21 08/28/22 08/28/22 50 MCG multivitamin 1 tab PO DAILY 11/21/21 08/28/22 08/28/22 tamoxifen 20 mg tablet 20 mg PO DAILY 11/21/21 08/28/22 08/28/22 dofetilide 250 mcg capsule 250 mcg PO BID #180 caps 05/14/22 08/28/22 08/28/22 08:00 Active Medications Generic Name Dose Route Start Last Admin Trade Name Freq PRN Reason Stop Dose Admin Dofetilide 250 mcg 08/28/22 21:19 08/29/22 22:51 Dofetilide 125 Mcg Capsule PO 09/27/22 21:18 Not Given BID SHAQUILLE Pantoprazole Sodium 40 mg/ 100 mls @ 20 mls/hr 08/28/22 18:15 08/30/22 10:49 Dextrose IV 09/27/22 18:14 0 mg/hr Q5H SHAQUILLE 0 mls/hr Infusion 8 MG/HR Sodium Chloride 1,000 mls @ 100 mls/hr 08/29/22 01:00 08/30/22 10:49 Nss 1000ml IV 09/28/22 00:59 0 mls/hr .Q10H SHAQUILLE Infusion Iron Sucrose 300 mg/ Sodium 265 mls @ 176.667 mls/hr 08/28/22 21:19 08/29/22 22:51 Chloride IV 08/30/22 22:29 Infused DAILY@2100 SHAQUILLE Infusion Levothyroxine Sodium 25 mcg 08/29/22 06:30 08/29/22 06:37 Levothyroxine Sodium 25 Mcg Tablet PO 09/28/22 06:29 Not Given [id number] SHAQUILLE Levothyroxine Sodium 50 mcg 08/30/22 06:30 08/30/22 06:41 Levothyroxine Sodium 50 Mcg Tablet PO 09/29/22 06:29 Not Given [id number] [facility] Pravastatin Sodium 20 mg 08/29/22 09:00 08/30/22 07:32 Pravastatin Sod 20 Mg Tab PO 09/28/22 08:59 Not Given DAILY SHAQUILLE NPO Date Last Intake of Fluids: 08/29/22 Time Last Intake of Fluids: 23:30 Date Last Intake of Solids: 08/28/22 Time Last Intake of Solids: 21:00 Past Medical History Medical History Abnormal brain CT Acute left-sided weakness Aneurysm Anterior communicating artery Bradycardia Breast cancer, right Biopsy on 09/18/21 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 Family/Other Breast cancer Maternal aunt Son No problems noted. Daughter No problems noted. Other Cancer Dyslipidemia Past Surgical History Surgical History History of lumpectomy of right breast History of mitral valve replacement with mechanical valve St Eren bileaflet tilting disc mechanical valve 1993. Closure of left atrial appendage at time of surgery. Hx of colonoscopy S/P breast biopsy, right S/P PETER (total abdominal hysterectomy) Status post partial mastectomy of right breast With right axillary SLN biopsy on 10/18/21 Dr. Cabrera Past Anesthesia History No Hx of Anesthesia Complications and No Family Hx of Anesthesia Complications History of PONV No Hx of PONV and No Hx of Motion Sickness Social History Smoking Status: Never smoker Smoking cigarettes per day: 1 PPD x 40yrs Hx Alcohol Use: No Hx Substance Use: No substance use type: does not use Physical Exam Vital Signs Last Vital Signs Temp 36.4 C L 08/30/22 11:28 Pulse 59 L 08/30/22 11:28 Resp 18 08/30/22 11:28 BP 124/61 08/30/22 11:28 Pulse Ox 98 08/30/22 11:28 O2 Del Method 08/30/22 11:28 O2 Flow Rate 99 08/29/22 03:42 Constitutional no acute distress and not cachectic ENMT Mouth: no dentition abnormality Thyromental Distance: < 3.5 Finger Breadths Mallampati Class: II Neck normal visual inspection and trachea midline; neck extension not limited Respiratory normal respiratory effort Auscultation: lungs clear to auscultation bilaterally Cardiovascular Rate/Rhythm: regular rate and regular rhythm Heart Sounds: + murmur (s/p mvr) Vessels: no carotid bruit Musculoskeletal Spine: normal cervical ROM Extremities: full ROM of extremities Neurologic moves all extremities Motor/Sensory: no sensory deficit Psychiatric Orientation: alert and oriented x 3 Testing Laboratory Results 08/30/22 05:46 08/30/22 05:46 PT 12.4 Seconds (9.0-12.0) H 08/30/22 05:46 INR 1.2 (0.9-1.1) H 08/30/22 05:46 APTT 39.6 Seconds (21.0-31.0) H 08/28/22 14:12 Blood Type O Positive 08/28/22 18:28 Antibody Screen NEGATIVE 08/28/22 18:28
[2022-08-30] MEDS ORDERED: PROPOFOL IV EMULSION 10 MG/ML 20 ML VIAL IV ONE (12:15)
[2022-08-30] MEDS ORDERED: LIDOCAINE 2% MPF LOCAL 5 ML VIAL INFIL ONE (12:15)
--- NOTE | 2022-08-30 12:16 | Anesthesiology Progress Note ---
Date of Service August 30, 2022 Anesthesia Post Procedure Vital Signs Vital Signs: Temp Pulse Pulse Pulse Resp BP Pulse Ox 08/30/22 12:12 62 16 99/52 L 99 08/30/22 11:28 36.4 C L 59 L 18 124/61 98 08/30/22 11:04 36.6 C 60 17 127/74 99 08/30/22 07:53 36 C L 66 16 99/63 L 97 08/30/22 07:00 61 08/30/22 03:00 36.7 C 71 16 119/63 97 08/29/22 19:15 08/29/22 22:25 58 L 08/29/22 23:00 36.5 C 63 18 114/55 L 99 08/29/22 22:24 80 122/54 L 08/29/22 21:25 76 110/72 08/29/22 19:00 36.5 C 61 18 132/62 100 08/29/22 14:56 36.7 C 60 17 109/67 98 O2 Del Method 08/30/22 12:12 Room Air 08/30/22 11:28 Room Air 08/30/22 11:04 Room Air 08/30/22 07:53 Room Air 08/30/22 07:00 08/30/22 03:00 Room Air 08/29/22 19:15 Room Air 08/29/22 22:25 08/29/22 23:00 Room Air 08/29/22 22:24 08/29/22 21:25 08/29/22 19:00 Room Air 08/29/22 14:56 Room Air Pain Intensity Abdomen: Pain Intensity: 0 Transfer of Care Handoff Completed per policy Notes Mental Status: alert / awake / arousable Patient Amnestic to Procedure: Yes Nausea / Vomiting: adequately controlled Pain: adequately controlled Airway Patency, RR, SpO2: stable & adequate BP & HR: stable & adequate Hydration State: stable & adequate Anesthetic Complications: no major complications apparent
--- NOTE | 2022-08-30 12:22 | GI REPORT ---
Patient Name: Soha Del Rosario Procedure Date: 08/30/2022 11:37 AM Date of : 1960 Admit Type: Inpatient Age: 62 Gender: Female Attending MD: Melchor Escalante MD Procedure: Upper GI endoscopy Providers: Melchor Escalante MD Referring MD: KATHIE ROMERO Indications: Melena, Recent gastrointestinal bleeding Medicines: See the Anesthesia note for documentation of the administered medications Complications: No immediate complications. Estimated Blood Loss: Estimated blood loss: none. Procedure: Pre-Anesthesia Assessment: - Prior to the procedure, a History and Physical was performed, and patient medications, allergies and sensitivities were reviewed. The patient's tolerance of previous anesthesia was reviewed. - The risks and benefits of the procedure and the sedation options and risks were discussed with the patient. All questions were answered and informed consent was obtained. - Patient identification and proposed procedure were verified prior to the procedure by the physician and the nurse. The procedure was verified in the pre-procedure area. - Pre-procedure physical examination revealed no contraindications to sedation. - After reviewing the risks and benefits, the patient was deemed in satisfactory condition to undergo the procedure. After obtaining informed consent, the endoscope was passed under direct vision. Throughout the procedure, the patient's blood pressure, pulse, and oxygen saturations were monitored continuously. The Endoscope was introduced through the mouth, and advanced to the third part of duodenum. The upper GI endoscopy was accomplished without difficulty. The patient tolerated the procedure well. Findings: The esophagus was normal. The stomach was normal. The examined duodenum was normal. The cardia and gastric fundus were normal on retroflexion. Impression: - Normal esophagus. - Normal stomach. - Normal examined duodenum. - No specimens collected. Recommendation: - Perform a colonoscopy today. Melchor Escalante M.D. Melchor Escalante MD 08/30/2022 12:22:03 PM This report has been signed electronically. Note Initiated On: 08/30/2022 11:37 AM Number of Addenda: 0 I attest to the content of the Intraoperative Record and orders documented therein, exceptions below {[id number]}
--- NOTE | 2022-08-30 12:25 | GI REPORT ---
Patient Name: Soha Del Rosario Procedure Date: 08/30/2022 11:36 AM Date of : 1960 Admit Type: Inpatient Age: 62 Gender: Female Attending MD: Melchor Escalante MD Procedure: Colonoscopy Providers: Melchor Escalante MD Referring MD: KATHIE ROMERO Indications: Melena, Gastrointestinal bleeding Medicines: See the Anesthesia note for documentation of the administered medications Complications: No immediate complications. Estimated Blood Loss: Estimated blood loss was minimal. Procedure: Pre-Anesthesia Assessment: - See the other procedure note for documentation of the pre-procedure assessment. After I obtained informed consent, the scope was passed under direct vision. Throughout the procedure, the patient's blood pressure, pulse, and oxygen saturations were monitored continuously. The Colonoscope was introduced through the anus and advanced to the cecum, identified by appendiceal orifice and ileocecal valve. The colonoscopy was performed without difficulty. The patient tolerated the procedure well. The quality of the bowel preparation was good. Findings: The perianal and digital rectal examinations were normal. A 5 mm polyp was found at 50 cm proximal to the anus. The polyp was sessile. The polyp was removed with a cold snare. Resection and retrieval were complete. Verification of patient identification for the specimen was done by the physician and nurse using the patient's name and medical record number. Estimated blood loss was minimal. The exam was otherwise without abnormality on direct and retroflexion views. Impression: - One 5 mm polyp at 50 cm proximal to the anus, removed with a cold snare. Resected and retrieved. - The examination was otherwise normal on direct and retroflexion views. Recommendation: - Await pathology results. - Discharge patient to home. Melchor Escalante M.D. Melchor Escalante MD 08/30/2022 12:24:38 PM This report has been signed electronically. Note Initiated On: 08/30/2022 11:36 AM Number of Addenda: 0 I attest to the content of the Intraoperative Record and orders documented therein, exceptions below {[id number]}
--- NOTE | 2022-08-30 12:45 | Cardiology Consultation ---
Date of Consultation August 30, 2022 Assessment & Plan (1) GI bleed: History of duodenal bleed requiring cauterization. H&H currently stable without any further melena at the moment. She is to undergo EGD. Would be most preferable that if a bleeding diathesis is found to be treated at that time as appropriate per gastroenterology. Patient is high risk for thrombosis of the mechanical valve and cardioembolic CVA so we would like to get her back on anticoagulation as soon as possible. We will await results of EGD. Present on Admission?: Yes (2) QT prolongation: Most recent QTC is only slightly above her baseline. She has been on dofetilide for many years and has been stable. She has normal renal function. She is unlikely to have ventricular arrhythmia based on current QTC and history. Therefore, would continue dofetilide at home dose. Closely monitor the renal function. She did tell me that previously held antiarrhythmic and EGD resulted in A. fib with RVR requiring DC cardioversion. Present on Admission?: Yes (3) Supratherapeutic INR: Patient had been on a stable dose of Coumadin with INR reportedly in the target range for a long time. Unclear what changed to make her supratherapeutic. She also had TIA in the past when off of Coumadin for only 5 days and with a INR in the low acceptable range. However, it certainly possible that the TIA was secondary to the cerebral aneurysm. In any case, we would like to get her back on anticoagulation GR[place]. Consider heparin drip post EGD and loading dose of Coumadin. When she had TIA she was bridging with Lovenox. Present on Admission?: Yes (4) Mechanical heart valve present: This was functioning properly on most recent echocardiogram from 2020. She has no evidence that she has had any change in mechanical prosthesis function. Do not feel that she needs reevaluation at this time unless her clinical status changes. Mechanical prosthesis in the mitral position has highest rate of thrombosis/CVA so we strongly feel return to full anticoagulation as soon as possible would be most prudent. Present on Admission?: Yes (5) Paroxysmal atrial fibrillation: Currently in sinus rhythm with PACs. Resume dofetilide. Resume anticoagulation as soon as reasonable. The mechanical valve gives her higher risk for CVA than atrial fibrillation particularly since she tends to remain in sinus rhythm while on dofetilide. Present on Admission?: Yes Plan We will continue to follow to assist in her cardiovascular management while admitted. History of Present Illness Reason for Consultation: Anticoagulation management Attending Physician: David Morocho MD History of Present Illness Pleasant 62-year-old female with a complex past medical history including mitral valve replacement with a mechanical valve, paroxysmal atrial fibrillation, GI bleed, breast cancer, TIA, cerebral aneurysm, and chronic long-term use of anticoagulation. She presented with supratherapeutic INR found at the Coumadin clinic and significant anemia with melena. GI bleed suspected. She received transfusion. I am asked to see her regarding management of her anticoagulation in the setting of suspected acute GI bleed. Patient denies any anginal chest pain or shortness of breath. She was very fatigued and had dyspnea on exertion when her blood counts were low. Since then she has been transfused and is feeling better. She has not had any episodes of atrial fibrillation. She is on dofetilide for rhythm control. Her QTC was reported to be over 500 ms. Dofetilide was therefore held. She states she is no longer having melena in her bowel movements. She is scheduled for EGD given her history of duodenal ulcer with prior cauterization. When asked about her supratherapeutic INR patient states that generally she has her INR checked every 6 weeks and it has been at target (2.5-3.5). However, she does not recall taking any antibiotics, changing her diet, or having significant alcohol intake preceding her recent INR evaluation. She denies any syncope, near syncope, orthopnea, PND, racing heartbeat, palpitations, or edema. She has not had any recent admissions for GI bleed or atrial fibrillation episodes. 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 However, she has had recurrent breast cancer diagnosed in 2020 with subsequent mastectomy and radiation therapy. This included sentinel node biopsy with 1 of 3 nodes having cancer. She evidently was not interested in chemotherapy. She also has a history of TIA which occurred after Coumadin was held for breast biopsy. She did restart Coumadin and was bridging with Lovenox when she sustained a TIA. Her INR at the time of the TIA was thought to be 2.5. 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 She voices no other complaints or concerns at this time. Her mitral repair was with a [employer] tilting disc mechanical prosthesis and performed many years ago. This included left atrial appendage occlusion/ligation. This was performed in [facility]. She had associated paroxysmal atrial fibrillation previously treated with amiodarone but complicated by hypothyroidism. She has had multiple DC cardioversions for atrial fibrillation. She has been on dofetilide for several years now and has not had any problems with the QTc typically in the 470 to 500 ms range. Holter monitoring has demonstrated very little A. fib and predominantly PACs and PVCs. Most recent echocardiogram demonstrates normal functioning mechanical prosthetic mitral valve, normal EF of 60%, mild tricuspid regurgitation, and normal wall motion. No other significant valvular abnormalities. Allergies Allergy/AdvReac Type Severity Reaction Status Date / Time No Known Allergies Allergy Verified 08/28/22 18:50 Home Medications Medication Instructions Recorded Confirmed Type pravastatin 20 mg tablet 20 mg PO DAILY 09/22/21 08/28/22 History warfarin 4 mg tablet 4 mg PO DIRECTED 09/22/21 08/28/22 History amoxicillin 500 mg capsule 2,000 mg PO DIRECTED PRN PRIOR 11/21/21 08/28/22 History TO DENTAL APPT. 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 Closure of left atrial appendage at time of surgery. Hx of colonoscopy S/P breast biopsy, right S/P PETER (total abdominal hysterectomy) Status post partial mastectomy of right breast With right axillary SLN biopsy on 10/18/21 Dr. Cabrera Family History Mother Dementia Alzheimer disease Father , 83yo Accident Cerebral aneurysm Atrial fibrillation Brother Obesity Sister No problems noted. Family/Other Breast cancer Maternal aunt Son No problems noted. Daughter No problems noted. Other Cancer Dyslipidemia Social History Smoking Status: Never smoker Tobacco Type: Cigarettes Cigarettes Per Day: 1 PPD x 40yrs; Hx Alcohol Use: No Hx Substance Use: No Preferred Language: Indonesian Communication Ability: Effective Visual Impairment: No Limitations Hearing Ability: Normal Stunner And Shackler Required: No Beliefs That Will Affect Care: None marital status: Current Living Situation: Family Current Living Situation Comment: Grandson lives with her current occupational status: employed Feels Safe at Home: Yes Safety Concerns: Feels Safe At This Time caffeine: Yes (1 cup/day) during the past year weight has: remained stable Assistive Devices: None Review of Systems Review of Systems: Patient admits to fatigue with exertion and mild dyspnea on exertion preceding admission. She denies fevers, chills, cough, sputum production, hematemesis, hemoptysis, abdominal discomfort, nausea, vomiting, diarrhea, constipation, hematochezia, dysuria, hematuria, myalgia, arthralgia, blurred vision, double vision, focal weakness, numbness, tingling, ambulatory difficulty. She did have melena. The remainder of her 12 point review of systems is negative except as per HPI. Physical Exam Constitutional: WD/WN, vitals as above Eyes: PERRL, conjunctivae normal, anicteric sclerae ENMT: external ear and nose normal, oropharynx normal Neck: No JVD Respiratory: normal respiratory effort, lungs clear to auscultation (No wheezing, rhonchi, or crackles) Cardiovascular: Regular rate and rhythm with occasional PACs on the monitor. She is in sinus rhythm/sinus bradycardia. Soft systolic murmur and mechanical valve sounds. No edema. Gastrointestinal (Abdomen): Normal bowel sounds. Musculoskeletal: no cyanosis or clubbing, extremities motor strength 5/5 Neurologic: Cognition is intact. Speech is fluent. There is no focal motor deficits. No tremor. Psychiatric: A+Ox3, euthymic affect Results & Data ([facility]) Vital Signs (Past 12 Hours) Vital Signs Temp Pulse Pulse Resp BP Pulse Ox O2 Del Method 08/30/22 12:12 62 16 99/52 L 99 Room Air 08/30/22 11:28 36.4 C L 59 L 18 124/61 98 Room Air 08/30/22 11:04 36.6 C 60 17 127/74 99 Room Air 08/30/22 07:53 36 C L 66 16 99/63 L 97 Room Air 08/30/22 07:00 61 08/30/22 03:00 36.7 C 71 16 119/63 97 Room Air PG Care Time/CCT Total # of Minutes Spent Total Time Spent with Patient: Total time spent is greater than 50% in coordination of care (as documented) at patient's floor/unit and/or counseling patient: Coding Level of Care Code 01787 Inpt Consult Level 5 Diagnoses GI bleed K92.2 QT prolongation R94.31 Supratherapeutic INR R79.1 Mechanical heart valve present Z95.2 Paroxysmal atrial fibrillation I48.0
--- NOTE | 2022-08-30 13:30 | Electrocardiogram Report ---
Test Reason : Blood Pressure : / mmHG Vent. Rate : 072 BPM Atrial Rate : 072 BPM P-R Int : 172 ms QRS Dur : 070 ms QT Int : 418 ms P-R-T Axes : 074 043 011 degrees QTc Int : 457 ms Normal sinus rhythm Low voltage QRS Nonspecific ST and T wave abnormality Abnormal ECG When compared with ECG of 29-AUG-2022 22:39, Premature atrial complexes are no longer Present Nonspecific T wave abnormality, worse in Anterolateral leads QT has shortened Confirmed by Hunter Pendleton ([id number]) on 08/30/2022 1:30:03 PM Referred By: REFERRED SELF Confirmed By:Juan Luis Pendleton
[2022-08-30] MEDS ORDERED: HEPARIN SODIUM/DEXTROSE 25,000 UNITS/500 ML BAG IV SCH (13:45)
[2022-08-30] MEDS: Heparin IV Adult Wt-Based Standard *NO* Bolus Protocol IV SCH ×2 (14:29→14:31)
[2022-08-30] MEDS: WARFARIN SOD 4 MG TAB PO SCH (16:24)
[2022-08-30] MEDS: PANTOprazole 40 MG in SYRINGE 0 ML IV SCH (20:37)
[2022-08-30] MEDS: IRON SUCROSE 300 MG in SODIUM CHLORIDE 0.9% 250 ML IV SCH (20:37)
[2022-08-30] MEDS: DOFETILIDE 125 MCG CAPSULE PO SCH (20:37)
[2022-08-30 21:55] LABS: Partial Thromboplastin Ratio 2.5
[2022-08-30 21:57] LABS: Partial Thromboplastin Time 68.4 Seconds (21.0-31.0)
[2022-08-31 04:41] LABS: INR 1.3 (0.9-1.1); Partial Thromboplastin Ratio > 5.1
[2022-08-31 04:44] LABS: Partial Thromboplastin Time > 139.0 Seconds (21.0-31.0)
[2022-08-31] MEDS: LEVOTHYROXINE SODIUM 25 MCG TABLET PO SCH (06:05)
[2022-08-31 06:29] LABS: Partial Thromboplastin Ratio 4.1
[2022-08-31 06:50] LABS: Partial Thromboplastin Time 112.2 Seconds (21.0-31.0)
[2022-08-31 07:46] LABS: Partial Thromboplastin Ratio 2.1
[2022-08-31] MEDS: DOFETILIDE 125 MCG CAPSULE PO SCH (08:09)
[2022-08-31] MEDS: PANTOprazole 40 MG in SYRINGE 0 ML IV SCH (08:10)
[2022-08-31] MEDS: PRAVASTATIN SOD 20 MG TAB PO SCH (08:10)
[2022-08-31 09:41] LABS: Hematocrit (blood only) 28.9 % (34.1-44.9); Hemoglobin 9.8 g/dl (12.0-16.0); Mean Corpuscular Hemoglobin 30.5 pg (25.0-34.0); Mean Corpuscular Hgb Conc 33.9 g/dL (32.0-36.0); Mean Platelet Volume 10.6 fL (9.4-12.3); Platelet Count 204 K/uL (130-400); RDW Coefficient of Variation 15.3 % (11.5-14.5); RDW Standard Deviation 46.8 fL (36.4-46.3); Red Blood Count 3.21 M/uL (3.93-5.22); White Blood Count 5.46 K/ul (4.8-10.8)
[2022-08-31] MEDS ORDERED: ENOXAPARIN INJ 60 MG/0.6 ML SYR SQ ONE (11:15)
[2022-08-31 14:40] LABS: Partial Thromboplastin Ratio 1.8
[2022-08-31 14:41] LABS: Partial Thromboplastin Time 48.3 Seconds (21.0-31.0)
[2022-08-31 14:48] VITALS: BP 128/72; TEMP 98.4; O2SAT 98
--- NOTE | 2022-08-31 15:13 | Discharge Summary ---
Date of Service August 31, 2022 Admission HPI Per Admitting Provider 62 year old female with h/o mechanical MV on coumadin, PAF, h/o right breast cancer, hypothyroidism, brain aneurysm scheduled for surgery 09/18 who presented to the ED today with black tarry stool and weakness. She was restless all night and she had a black tarry stool this morning. She did not have a BM for past 3 days. She felt weak and tired. She had her INR drawn today which was 5.8. She came to the ED for evaluation. Denies any CP, SOB, lightheadedness, dizziness. Her last dose of coumadin was yesterday morning. She has h/o duodenal ulcer 8 years back in [place] which was cauterized. She denies intake of any NSAIDs. Denies any GERD. Denies any new meds. Does not smoke or drink alcohol. States she is under lot of stress due to upcoming aneurysm surgery. States she had TIA while her coumadin was held and was bridged with lovenox for breast biopsy a year ago. In the ED, her Hb was 8, INR 5, vitals stable. Given Vit K 2.5 mg in the ED. Type and cross done fo 4 U PRBC and on hold in case she needs transfusion. Started on ivf and PPI drip/pepcid. Hospitalist service was consulted for admission. Admission Exam Per Admitting Provider General: Lying comfortably in bed, not in distress, on room air HEENT: EOMI, TINO, MMM Chest: Clear breath sounds bilaterally, no wheezes or crackles CVS: Regular rate and rhythm, normal heart sounds, no murmur Abdomen: Soft, non tender, not distended, normal bowel sounds Neuro: Awake, alert, oriented, conversing well, non focal Extremities: No cyanosis, clubbing or edema MSK: negative Skin: Warm, dry, no rash Psych: calm, cooperative Principal Diagnosis Acute blood loss anemia: GIB (gastrointestinal bleeding): H/O: duodenal ulcer: Symptomatic anemia: Supratherapeutic INR: Mechanical heart valve present: Paroxysmal atrial fibrillation: QT prolongation: Brain aneurysm: Breast cancer, right: Hypothyroid: Discharge Exam General- No acute distress Head- atraumatic Eyes- PERRL, EOMI, ENT- oropharynx clear Neck- supple, no JVD Lungs- clear to auscultation Heart- regular rhythm; very low grade murmur Abdomen- normal bowel sounds, soft, nontender Extremities- no calf tenderness Neuro- alert, oriented x 3; PERRL, EOMI; no facial palsy; no dysarthria Skin- warm & dry Discharge Data Allergies Allergy/AdvReac Type Severity Reaction Status Date / Time No Known Allergies Allergy Verified 08/28/22 18:50 Consultations 08/28/22 18:56 ED Decision to Admit Stat 08/28/22 19:36 Consult Gastroenterology Routine 08/29/22 23:04 Consult Cardiology Routine Procedures Performed Operation Date: 08/30/22 16:30 Actual Procedures p Esophagogastroduodenoscopy - Melchor Escalante MD s Colonoscopy Polypectomy - Melchor Escalante MD Ordered Studies Laboratory Results WBC 5.46 K/ul (4.8-10.8) 08/31/22 09:29 RBC 3.21 M/uL (3.93-5.22) L 08/31/22 09:29 Hgb 9.8 g/dl (12.0-16.0) L 08/31/22 09:29 Hct 28.9 % (34.1-44.9) L 08/31/22 09:29 MCV 90.0 fL (80.0-100.0) 08/31/22 09:29 MCH 30.5 pg (25.0-34.0) 08/31/22 09:29 MCHC 33.9 g/dL (32.0-36.0) 08/31/22 09:29 RDW Std Deviation 46.8 fL (36.4-46.3) H 08/31/22 09:29 RDW Coeff of Tanya 15.3 % (11.5-14.5) H 08/31/22 09:29 Plt Count 204 K/uL (130-400) 08/31/22 09:29 MPV 10.6 fL (9.4-12.3) 08/31/22 09:29 Immature Gran % (Auto) 0.3 % 08/28/22 14:12 Neut % (Auto) 80.6 % 08/28/22 14:12 Lymph % (Auto) 15.7 % 08/28/22 14:12 [place] % (Auto) 3.1 % 08/28/22 14:12 Eos % (Auto) 0.0 % 08/28/22 14:12 Baso % (Auto) 0.3 % 08/28/22 14:12 Neut # (Auto) 7.76 K/uL (1.4-6.5) H 08/28/22 14:12 Lymph # (Auto) 1.51 K/uL (1.2-3.4) 08/28/22 14:12 [place] # (Auto) 0.30 K/uL (0.24-0.82) 08/28/22 14:12 Eos # (Auto) 0.00 K/uL (0-0.50) 08/28/22 14:12 Baso # (Auto) 0.03 K/uL (0-0.2) 08/28/22 14:12 Immature Gran # (Auto) 0.03 K/uL (0.00-0.02) H 08/28/22 14:12 PT 14.0 Seconds (9.0-12.0) H 08/31/22 04:04 INR 1.3 (0.9-1.1) H 08/31/22 04:04 APTT 48.3 Seconds (21.0-31.0) H* 08/31/22 13:58 PTT Ratio 1.8 08/31/22 13:58 Sodium 144 mmol/L (136-145) 08/30/22 05:46 Potassium 3.6 mmol/L (3.5-5.1) 08/30/22 05:46 Chloride 115 mmol/L (98-107) H 08/30/22 05:46 Carbon Dioxide 23 mmol/L (21-32) 08/30/22 05:46 Anion Gap 6 (3-11) 08/30/22 05:46 BUN 8 mg/dl (6-23) 08/30/22 05:46 Creatinine 0.74 mg/dl (0.6-1.2) 08/30/22 05:46 Est Cr Clr Drug Dosing 67.0 ml/min 08/30/22 05:46 Est GFR ( Amer) 99.2 ml/min 08/30/22 05:46 Est GFR (Non-Af Amer) 85.6 ml/min 08/30/22 05:46 BUN/Creatinine Ratio 10.8 (10-20) 08/30/22 05:46 Glucose 102 mg/dl (70-99(Fasting)) H 08/30/22 05:46 Calcium 7.4 mg/dl (8.5-10.1) L 08/30/22 05:46 Magnesium 2.3 mg/dl (1.7-2.4) 08/30/22 05:46 Total Bilirubin 0.3 mg/dl (0.2-1.0) 08/28/22 14:12 AST 23 U/L (13-39) 08/28/22 14:12 ALT 13 U/L (7-52) 08/28/22 14:12 Alkaline Phosphatase 42 U/L (34-104) 08/28/22 14:12 Total Protein 5.3 gm/dl (6.0-8.3) L 08/28/22 14:12 Albumin 3.8 gm/dl (3.4-5.0) 08/28/22 14:12 Globulin 1.5 gm/dl (2.5-4.0) L 08/28/22 14:12 Albumin/Globulin Ratio 2.5 (0.9-2) H 08/28/22 14:12 Lipase 56 U/L (11-82) 08/28/22 14:12 SARS-CoV-2, RNA, NAAT NEGATIVE (NEGATIVE) 08/28/22 18:22 Blood Type O Positive 08/28/22 18:28 Blood Type Recheck O Positive 08/28/22 18:55 Antibody Screen NEGATIVE 08/28/22 18:28 Crossmatch See Detail 08/28/22 18:28 Hospital Course (1) Acute blood loss anemia: (2) GIB (gastrointestinal bleeding): (3) H/O: duodenal ulcer: (4) Symptomatic anemia: present on admission with large amount black tarry stool possible UGI bleeding with h/o dudoenal ulcer H/o PUD with duodenal ulcer requiring cauterization 8 years back. INR on admission 5 and received 2.5mg vit K hgb dropped to 6.8 yesterday with baseline hgb 12-13, received 2 units PRBC gastro on board S/P EGD showed normal esophagus, normal stomach. Normal examined duodenum. case discussed with gastro about low dose of heparin drip while pt off coumadin due to history of mitral valve with mechanical vavle gastro suggested to hold the anticoagulant since pt had history of duodenal ulcer back in 2007, then pt had a large amount black tarry stool with hgb dropped to 6.8 that required transfusion this admission Case discussed with cardiology dr. Pendleton that recommended to hold IV heparin drip due to GI bleed that required transfusion. Since pt plan for the procedure tomorrow at 10AM, he recommended to start anticoagulant Heparin drip as soon as the procedure done if no sign of bleeding He recommended to start the coumadin later, since it will take time until INR therapeutic Plan discussed with patient and agrees to hold anticoagulant bridging for 24 hrs due to risk of bleeding 08/31/22 Hgb 9.8 today S/P EGD showed normal esophagus, normal stomach. Normal examined duodenum. Colonoscopy revealed one 5 mm polyp at 50 cm proximal to the anus, Resected and retrieved Will check CBC in 1 week (5) Supratherapeutic INR: INR 5 on coumadin and s/p 2.5 mg iv vit K for reversal but cautious given her mechanical MV and h/o TIA when her coumadin was held and bridged with lovenox. Goal INR is 2.5-3.5, ideally around 3 per cardiology INR 1.3 today Anticoagulant was on hold due to GI bleed Coumadin 8mg given yesterday and today Pt was starting on IV heparin drip, after 24hr on heparin drip, she was transition to Lovenox Case discussed with Kyle Ayala at the coag clinic. He will contact the patient and give her instruction with the coumadin to follow Will continue Lovenox 60mg BID bridging and coumadin until INR therapeutic Continue monitor for bleeding. Pt was advised if develop any abnormal bleeding to urgent seek medical attention (6) Mechanical heart valve present: Coumadin was on hold due to GI bleed IV heparin drip discontinued, then transition to Lovenox subq BID Coumadin 8 mg given today and yesterday Follow up with the coag clinic to monitor PT/INR (7) Paroxysmal atrial fibrillation: rate control Dofetilide was placed on hold last night due to QTC prolongation cardiology consulted Case discussed with cardiology that recommended to resume the Dofetilide Follow up with cardiology outpatient Continue coumadin with heparin bridge (8) QT prolongation: EKG revealed QTC 457 Tikosyn placed on hold Repeat EKG today showed QTC 457 Cardiology consult Continue monitor closely (9) Brain aneurysm: Scheduled for surgery on 09/18 (10) Breast cancer, right: s/p treatment. Now on tamoxifen as ER positive. (11) Hypothyroid: continue synthroid Plan DVT ppx- Coumadin on hold due to GI bleed Full code Total Time Total Time Spent Total Time Spent (In Minutes): 35 minutes Discharge Plan Discharge Items Patient Disposition: Home - Self-Care Reason For Visit: BLACK TARRY STOOL Discharge Diagnosis: Acute blood loss anemia: GIB (gastrointestinal bleeding): H/O: duodenal ulcer: Symptomatic anemia: Supratherapeutic INR: Mechanical heart valve present: Paroxysmal atrial fibrillation: QT prolongation: Brain aneurysm: Breast cancer, right: Hypothyroid: Activity: Resume your previous activity Non-emergency contact: Primary Care Provider Call non-emergency contact if: you have any medication questions Follow-up/Referrals: Jsoe Garibay MD [Primary Care Provider] - (Date & Time 09/07/2022 12:00 PM Provider Jose Garibay MD Department General Internal Medicine [facility] ) Diet: Heart Healthy Addtl Attending Provider Instructions: Follow up with your primary care provider on @ 12:00 PM Jose Garibay MD Department General Internal Medicine [facility] Follow up with your cardiology dr. Reis Follow up with the coumadin clinic to monitor your PT/INR Continue Lovenox subq 60mg twice a day until INR at goal (coumadin clinic will advise you when to stop the lovenox) continue monitor for any abnormal bleeding and seek urgent medical attention if you develop any bleeding Ok to resume aspirin on Saturday if no evidence of dark stool or abnormal bleeding Check CBC within 1 week to monitor your hemoglobin Pending Studies at Discharge: No Stand-Alone Forms: My [facility] [employer], Smoking Cessation Medications and DC Order Prescriptions: New enoxaparin 60 mg/0.6 mL Syringe 60 mg subcut Q12H 5 Days Qty: 6 0RF Continued multivitamin Tablet 1 tab PO DAILY amoxicillin 500 mg capsule 2,000 mg PO DIRECTED PRN (Reason: PRIOR TO DENTAL APPT.) Label Comments: Prior to dental procedures aspirin 81 mg capsule 81 mg PO DAILY levothyroxine 50 mcg capsule See Rx Instructions .ROUTE .COMPLEX Label Comments: Take on Tues, Thurs, and Sat. Rx Instructions: 50 mcg orally; TAKES 50 MCG ON TUES, THURS, & SAT. THEN TAKES 25 MCG ON SAT, SAT, SAT & SAT. tamoxifen 20 mg tablet 20 mg PO DAILY dofetilide 250 mcg capsule 250 mcg PO BID Qty: 180 3RF warfarin 4 mg tablet 4 mg PO DIRECTED Rx Instructions: TAKES QAM. PER PT "HOLD DOSE ON 08/28 & 08/29, THEN 2 MG ON 08/30, THEN BACK TO 4 MG ON SATURDAY AND AFTER". pravastatin 20 mg tablet 20 mg PO DAILY Admission Data Admit Date/Time: 08/28/22 19:36 Attending Provider: David Morocho Admit Provider: Payam Forbes Primary Care Provider: Jose Garibay Other Providers: Geoff Coy ; Payam Forbes ; Hunter Pendleton Other Interventions: Discharge Summary Assessment (RN) Last Done: 08/30/22 12:16
[2022-08-31 16:39] VITALS: PULSE 68
[2022-08-31] MEDS: WARFARIN SOD 4 MG TAB PO SCH (17:34)
--- NOTE | 2022-08-31 17:35 | Cardiology Progress Note ---
Date of Service August 31, 2022 Assessment & Plan (1) GI bleed: Plan: No source of bleed found. H&H have been stable. Resume anticoagulation as below. Would carefully monitor H&H for drop after initiating anticoagulation. (2) Supratherapeutic INR: Plan: Unclear reason why her INR was supratherapeutic. She is restarting at 8 mg and I would recommend that she be checked more frequently than once every 6 weeks at least in the short-term until we find the appropriate dose to maintain a therapeutic INR. This will be followed at the [facility] coagulation clinic as previously. (3) Mechanical heart valve present: Plan: This is functioning normally. Bridging with Lovenox until INR 2.5-3.5. Patient should follow-up with Dr. Reis within 4 weeks of discharge. Admission and Anticipated Discharge Date Admission Date: August 28, 2022 Subjective Patient denies any chest pain or shortness of breath at this time. Underwent EGD and colonoscopy. EGD without any source of bleed. Colonoscopy with a sing le polyp. She is to be discharged today. Restarted on Coumadin and bridging with Lovenox until INR achieves target of 2.5-3.5. She is to see neurosurgery regarding aneurysm clip later this month. Review of Systems Review of Systems: No changes Physical Exam Constitutional: WD/WN, vitals as above Neck: trachea midline, no thyromegaly Respiratory: normal respiratory effort, lungs clear to auscultation Cardiovascular: Regular rate and rhythm. Soft systolic murmur. Loud mechanical valve sounds. No edema. Psychiatric: A+Ox3, euthymic affect Results & Data ([facility]) Vital Signs (Past 12 Hours) Vital Signs Temp Pulse Pulse Pulse Resp BP Pulse Ox 08/31/22 16:38 36.9 C 68 59 L 14 128/72 98 08/31/22 14:47 36.9 C 59 L 14 128/72 98 08/31/22 10:49 36.6 C 64 17 124/69 99 08/31/22 07:00 63 08/31/22 06:59 36.7 C 60 17 119/73 98 O2 Del Method 08/31/22 16:38 08/31/22 14:47 Room Air 08/31/22 10:49 Room Air 08/31/22 07:00 08/31/22 06:59 Room Air PG Care Time/CCT Total # of Minutes Spent Total Time Spent with Patient: Total time spent is greater than 50% in coordination of care (as documented) at patient's floor/unit and/or counseling patient: Coding Level of Care Code 87048 Subseq Hosp Care Lvl 1 Diagnoses GI bleed K92.2 Supratherapeutic INR R79.1 Mechanical heart valve present Z95.2
[2022-08-31] MEDS ORDERED: ENOXAPARIN INJ 60 MG/0.6 ML SYR SQ SCH (21:00)
== END 2022-08-31 18:07 | disposition home or self-care (01) | DRG 378 ==
LOC: ED 13:15 → 2E 19:36 → SUATTDRO 19:36 → 2E 20:20